=== PATIENT | male | born 1975 | race Caucasian/White ===

== ENCOUNTER 2021-12-12 06:20 | Inpatient (IN) | payer OTHER ==
[2021-12-12] MEDS ORDERED: MORPHINE SULFATE 4 MG/ML SYRINGE IV STA (06:41)
--- NOTE | 2021-12-12 06:45 | ED ---
General Adult HPI - General Chief complaint: Upper Respiratory Infection Stated complaint: RT should pain, coughing up blood Time Seen by Provider: 12/12/21 06:36 Source: patient, family Mode of arrival: ambulatory Limitations: no limitations - History of Present Illness Initial comments: 46-year-old male presents to the emergency room for a chief complaint of right- sided chest pain. Patient states he started to have some right-sided chest pain about 2 days ago. Denies it radiating down the arm or to the jaw or back. Patient states when he is lying still the pain is tolerable but when he breathes normally it worsens significantly. Yesterday he started to have some shortness of breath with this and today had a couple episodes of mild hemoptysis. He reports that 2 days ago he also had a fever of 102 that has since resolved. Patient does have a smoking history. No cardiac history.denies history of COPD or asthma. Patient has no other complaints at this time including abdominal pain, nausea or vomiting, headache, or visual changes. - Related Data Allergies Allergy/AdvReac Type Severity Reaction Status Date / Time sulfamethoxazole Allergy Swelling Verified 12/12/21 06:32 [From Bactrim] trimethoprim [From Bactrim] Allergy Swelling Verified 12/12/21 06:32 Review of Systems ROS Statement: Those systems with pertinent positive or pertinent negative responses have been documented in the HPI. ROS Other: All systems not noted in ROS Statement are negative. Past Medical History Past Medical History: No Reported History History of Any Multi-Drug Resistant Organisms: None Reported Past Surgical History: No Surgical Hx Reported Past Psychological History: No Psychological Hx Reported Smoking Status: Current every day smoker Past Alcohol Use History: Occasional Past Drug Use History: Marijuana General Exam Limitations: no limitations General appearance: alert, in no apparent distress Head exam: Present: atraumatic Eye exam: Present: normal appearance, PERRL, EOMI. Absent: scleral icterus, conjunctival injection ENT exam: Present: normal exam, mucous membranes moist Neck exam: Present: normal inspection, full ROM. Absent: tenderness Respiratory exam: Present: normal lung sounds bilaterally. Absent: respiratory distress, wheezes Cardiovascular Exam: Present: regular rate, normal rhythm, normal heart sounds GI/Abdominal exam: Present: soft, normal bowel sounds. Absent: distended, tenderness Course Vital Signs 12/12/21 12/12/21 12/12/21 06:29 08:46 10:21 Temperature 98 F Pulse Rate 74 75 77 Respiratory 22 20 22 Rate Blood Pressure 135/87 121/82 106/63 O2 Sat by Pulse 96 97 97 Oximetry EKG Findings - EKG Comments: EKG Findings:: sinus rhythm, vent rate 75, pr int 168, QTc 389, no st elevation or depression Medical Decision Making - Medical Decision Making Vitals are stable. EKG is nonischemic. CBC CMP unremarkable. Troponin negative. D-dimer was elevated. CT of the chest that shows a thrombus within of right mid lung pulmonary artery. Also nonspecific infiltrates. Correlate for pneumonia, underlying mass is not excluded. Patient was started on high- dose heparin and given a dose of IV antibiotics. Case discussed with Dr. Hart does accept patient. Requests continuing heparin and consulting pulmonology. Would like to hold off on further antibiotic treatment at this time. Of note patient does admit to some left posterior knee pain a couple days ago. - Lab Data Result diagrams: 12/12/21 06:55 12/12/21 06:55 Lab Results 12/12/21 12/12/21 12/12/21 Range/Units 06:55 06:55 06:55 WBC 8.4 (3.8-10.6) k/uL RBC 4.97 (4.30-5.90) m/uL Hgb 15.6 (13.0-17.5) gm/dL Hct 46.4 (39.0-53.0) % MCV 93.5 (80.0-100.0) fL MCH 31.4 (25.0-35.0) pg MCHC 33.6 (31.0-37.0) g/dL RDW 11.9 (11.5-15.5) % Plt Count 166 (150-450) k/uL MPV 7.2 Neutrophils % 67 % Lymphocytes % 19 % Monocytes % 8 % Eosinophils % 3 % Basophils % 1 % Neutrophils # 5.6 (1.3-7.7) k/uL Lymphocytes # 1.6 (1.0-4.8) k/uL Monocytes # 0.7 (0-1.0) k/uL Eosinophils # 0.3 (0-0.7) k/uL Basophils # 0.1 (0-0.2) k/uL PT 9.3 (9.0-12.0) sec INR 0.8 (<1.2) APTT 27.1 (22.0-30.0) sec D-Dimer 0.87 H (<0.60) mg/L FEU Sodium 136 L (137-145) mmol/L Potassium 3.9 (3.5-5.1) mmol/L Chloride 101 (98-107) mmol/L Carbon Dioxide 24 (22-30) mmol/L Anion Gap 11 mmol/L BUN 15 (9-20) mg/dL Creatinine 1.00 (0.66-1.25) mg/dL Est GFR (CKD-EPI)AfAm >90 (>60 ml/min/1.73 sqM) Est GFR (CKD-EPI)NonAf 89 (>60 ml/min/1.73 sqM) Glucose 99 (74-99) mg/dL Plasma Lactic Acid Brant (0.7-2.0) mmol/L Calcium 9.4 (8.4-10.2) mg/dL Magnesium 2.1 (1.6-2.3) mg/dL Total Bilirubin 0.8 (0.2-1.3) mg/dL AST 24 (17-59) U/L ALT 20 (4-49) U/L Alkaline Phosphatase 88 (38-126) U/L Troponin I (0.000-0.034) ng/mL NT-Pro-B Natriuret Pep pg/mL Total Protein 7.9 (6.3-8.2) g/dL Albumin 4.7 (3.5-5.0) g/dL Lipase 91 (23-300) U/L Coronavirus (PCR) (Not Detectd) 12/12/21 12/12/21 12/12/21 Range/Units 06:55 06:55 06:55 WBC (3.8-10.6) k/uL RBC (4.30-5.90) m/uL Hgb (13.0-17.5) gm/dL Hct (39.0-53.0) % MCV (80.0-100.0) fL MCH (25.0-35.0) pg MCHC (31.0-37.0) g/dL RDW (11.5-15.5) % Plt Count (150-450) k/uL MPV Neutrophils % % Lymphocytes % % Monocytes % % Eosinophils % % Basophils % % Neutrophils # (1.3-7.7) k/uL Lymphocytes # (1.0-4.8) k/uL Monocytes # (0-1.0) k/uL Eosinophils # (0-0.7) k/uL Basophils # (0-0.2) k/uL PT (9.0-12.0) sec INR (<1.2) APTT (22.0-30.0) sec D-Dimer (<0.60) mg/L FEU Sodium (137-145) mmol/L Potassium (3.5-5.1) mmol/L Chloride (98-107) mmol/L Carbon Dioxide (22-30) mmol/L Anion Gap mmol/L BUN (9-20) mg/dL Creatinine (0.66-1.25) mg/dL Est GFR (CKD-EPI)AfAm (>60 ml/min/1.73 sqM) Est GFR (CKD-EPI)NonAf (>60 ml/min/1.73 sqM) Glucose (74-99) mg/dL Plasma Lactic Acid Brant 1.0 (0.7-2.0) mmol/L Calcium (8.4-10.2) mg/dL Magnesium (1.6-2.3) mg/dL Total Bilirubin (0.2-1.3) mg/dL AST (17-59) U/L ALT (4-49) U/L Alkaline Phosphatase (38-126) U/L Troponin I <0.012 (0.000-0.034) ng/mL NT-Pro-B Natriuret Pep 13 pg/mL Total Protein (6.3-8.2) g/dL Albumin (3.5-5.0) g/dL Lipase (23-300) U/L Coronavirus (PCR) (Not Detectd) 12/12/21 Range/Units 06:55 WBC (3.8-10.6) k/uL RBC (4.30-5.90) m/uL Hgb (13.0-17.5) gm/dL Hct (39.0-53.0) % MCV (80.0-100.0) fL MCH (25.0-35.0) pg MCHC (31.0-37.0) g/dL RDW (11.5-15.5) % Plt Count (150-450) k/uL MPV Neutrophils % % Lymphocytes % % Monocytes % % Eosinophils % % Basophils % % Neutrophils # (1.3-7.7) k/uL Lymphocytes # (1.0-4.8) k/uL Monocytes # (0-1.0) k/uL Eosinophils # (0-0.7) k/uL Basophils # (0-0.2) k/uL PT (9.0-12.0) sec INR (<1.2) APTT (22.0-30.0) sec D-Dimer (<0.60) mg/L FEU Sodium (137-145) mmol/L Potassium (3.5-5.1) mmol/L Chloride (98-107) mmol/L Carbon Dioxide (22-30) mmol/L Anion Gap mmol/L BUN (9-20) mg/dL Creatinine (0.66-1.25) mg/dL Est GFR (CKD-EPI)AfAm (>60 ml/min/1.73 sqM) Est GFR (CKD-EPI)NonAf (>60 ml/min/1.73 sqM) Glucose (74-99) mg/dL Plasma Lactic Acid Brant (0.7-2.0) mmol/L Calcium (8.4-10.2) mg/dL Magnesium (1.6-2.3) mg/dL Total Bilirubin (0.2-1.3) mg/dL AST (17-59) U/L ALT (4-49) U/L Alkaline Phosphatase (38-126) U/L Troponin I (0.000-0.034) ng/mL NT-Pro-B Natriuret Pep pg/mL Total Protein (6.3-8.2) g/dL Albumin (3.5-5.0) g/dL Lipase (23-300) U/L Coronavirus (PCR) Not Detected (Not Detectd) Disposition Clinical Impression: Pulmonary embolism, Chest pain, Dyspnea Disposition: ADMITTED IP TO THIS [facility] Referrals: Aliyah Pa MD [Primary Care Provider] - 1-2 days Time of Disposition: 10:33
[2021-12-12 07:23] LABS: Basophils # (A) 0.1 k/uL (0-0.2); Basophils % (A) 1 %; Eosinophils # (A) 0.3 k/uL (0-0.7); Eosinophils % (A) 3 %; HCT 46.4 % (39.0-53.0); HGB 15.6 gm/dL (13.0-17.5); Lymphocytes # (A) 1.6 k/uL (1.0-4.8); Lymphocytes % (A) 19 %; MCH 31.4 pg (25.0-35.0); MCHC 33.6 g/dL (31.0-37.0); MCV 93.5 fL (80.0-100.0); Mean Platelet Volume 7.2; Monocytes # (A) 0.7 k/uL (0-1.0); Monocytes % (A) 8 %; Neutrophils # (A) 5.6 k/uL (1.3-7.7); Neutrophils % (A) 67 %; Platelet Count 166 k/uL (150-450); RBC 4.97 m/uL (4.30-5.90); RDW 11.9 % (11.5-15.5); WBC 8.4 k/uL (3.8-10.6)
--- NOTE | 2021-12-12 07:27 | XR ---
EXAMINATION TYPE: XR chest 2V DATE OF EXAM: 12/12/2021 COMPARISON: None INDICATION: Chest pain right-sided times today, short of breath, hemoptysis TECHNIQUE: Frontal and lateral views of the chest are obtained. FINDINGS: The heart size is normal. The pulmonary vasculature is normal. Some minimal infiltrate is at the left base this may be related to atelectasis. Some minimal infiltra te may be within the right midlung.. IMPRESSION: 1. Right mid and left lower lung nonspecific infiltrate. Correlate for atelectasis. Follow-up can be performed as clinically indicated.
[2021-12-12 07:40] LABS: INR 0.8 (<1.2); Partial Thromboplastin Time 27.1 sec (22.0-30.0); Prothrombin Time 9.3 sec (9.0-12.0)
[2021-12-12 07:50] LABS: ALT 20 U/L (4-49); AST 24 U/L (17-59); African American GFR (CKD) >90 (>60 ml/min/1.73 sqM); Albumin 4.7 g/dL (3.5-5.0); Alkaline Phosphatase 88 U/L (38-126); Anion Gap 11 mmol/L; Blood Urea Nitrogen 15 mg/dL (9-20); Calcium 9.4 mg/dL (8.4-10.2); Carbon Dioxide 24 mmol/L (22-30); Chloride 101 mmol/L (98-107); Glucose 99 mg/dL (74-99); Lipase 91 U/L (23-300); Non-African American GFR(CKD) 89 (>60 ml/min/1.73 sqM); Potassium 3.9 mmol/L (3.5-5.1); Sodium 136 mmol/L (137-145); Total Bilirubin 0.8 mg/dL (0.2-1.3); Total Protein 7.9 g/dL (6.3-8.2)
[2021-12-12 08:04] LABS: Magnesium 2.1 mg/dL (1.6-2.3)
[2021-12-12] MEDS ORDERED: HYDROmorphone 0.5 MG/0.5 ML SYRINGE IVP STA ×3 (08:47→23:14)
[2021-12-12] MEDS ORDERED: HEPARIN SODIUM 1,000 UN/ML (10ML VL) IV PRN (09:52)
[2021-12-12] MEDS ORDERED: HEPARIN SODIUM 1,000 UN/ML (10ML VL) IV STA (09:52)
--- NOTE | 2021-12-12 09:54 | CT ---
CT CHEST FOR PULMONARY EMBOLISM. EXAMINATION TYPE: CT chest angio for PE DATE OF EXAM: 12/12/2021 INDICATION: Chest pain and coughing up blood. CT DLP: 398.4 mGycm, Automated exposure control for dose reduction was used. CONTRAST: Patient injected with 67ml mL of Isovue 370. COMPARISON: None TECHNIQUE: CT of the chest is performed on a spiral scan at 2 mm thick sections. Study is performed with intravenous contrast timed for evaluation for pulmonary embolism. This will limit additional po rtions of the evaluation. 3-D MIP images reconstructed by the technologist are reviewed on the compu ter in the coronal and sagittal planes. FINDINGS: There is a single right mid pulmonary artery thrombus better visualized in the coronal plane. Example image series 402 image 72. No right heart strain is evident. There is a peripheral infiltrate to the right anterior lateral upper lung field. This is more focal i n the right midlung. This may be related to the pulmonary embolism. Correlate for pneumonia. Consider atypical pneumonia or mass. Follow-up is recommended No mediastinal or hilar adenopathy enlarged by CT criteria is evident. The ascending aorta diameter at the level of the main pulmonary artery is 3.4 cm. The main pulmonary artery diameter at the bifur cation is 2.8 cm. Minimal infiltrate is along the dependent right lung base may be some compressive atelectasis. Some m ild streaky opacities are within the lingula. Limited CT section through the upper abdomen are unremarkable. IMPRESSIONS: 1. Thrombus within a right mid lung pulmonary artery. Report was called to the ER by Dr. Rodriguez by yue perez at the time of interpretation. 2. Nonspecific infiltrates discussed above. This is most focal in the peripheral anterolateral right midlung. May be related to the pulmonary embolism. Correlate for pneumonia. Underlying mass is not ex cluded. Follow-up is recommended
[2021-12-12] MEDS ORDERED: AZITHROMYCIN 500 MG in SODIUM CHLORIDE 0.9% 250 ML IVPB STA (09:58)
[2021-12-12] MEDS ORDERED: cefTRIAXone IN SWFI 1,000 MG/10 ML SYRINGE IVP STA (09:58)
[2021-12-12] MEDS: HEPARIN SOD,PORK IN 0.45% NACL 25,000 UNIT in 0.45% NACL 1 250ML.BAG IV SCH ×2 (10:04→23:53)
[2021-12-12] MEDS ORDERED: NICOTINE 21MG/24HR PATCH TRANSDERM STA (10:40)
[2021-12-12 11:00] LABS: Appearance,Urine Clear (Clear); Bilirubin,Urine Negative (Negative); Blood,Urine Negative (Negative); Color,Urine Yellow; Glucose,Urine (UA) Negative (Negative); Ketones,Urine Negative (Negative); Leukocyte Esterase,Urine Negative (Negative); Nitrite,Urine Negative (Negative); Protein,Urine Trace (Negative); Urobilinogen,Urine <2.0 mg/dL (<2.0)
[2021-12-12 11:15] LABS: Specific Gravity,Urine >1.050 (1.001-1.035)
[2021-12-12] MEDS: ALPRAZolam 0.25 MG TAB PO PRN (11:42)
[2021-12-12] MEDS: MORPHINE SULFATE 4 MG/ML SYRINGE IV PRN ×3 (11:45→21:07)
[2021-12-12] MEDS ORDERED: IPRATROPIUM-ALBUTEROL 3 ML NEB INHALATION STA (12:10)
--- NOTE | 2021-12-12 13:43 | P.CNPUL ---
History of Present Illness Consult date: 12/12/21 Requesting physician: Rashad Milian Reason for consult: dyspnea, chest pain, pulmonary embolism Chief complaint: Pleuritic right-sided chest pain, hemoptysis History of present illness: This is a 46-year-old white male patient, chronic smoker, with no significant prior medical history, not on any home medications will came into the emergency department on 12/12/2021 complaining of right-sided pleuritic chest pain, cough, with production of blood-tinged sputum, shortness of breath. Denied any fever or chills. Patient also had lower extremity swelling which has been present for the past 2 years. His chest x-ray in emergency department showed a right mid and left lower lung nonspecific infiltrate possibly related to atelectasis, and some minimal infiltrate within the right midlung. CTA chest revealed a thrombus within the right midlung pulmonary artery, and nonspecific infiltrate with multifocal in the peripheral anterolateral right midlung. No mediastinal or hilar adenopathy. Lab work shows CBC within normal limits, d-dimer was 0.87, electrolytes and renal profile were unremarkable, troponins were less than 0.0122, proBNP was 13, LFTs are within normal limits, renal profile was normal, urinalysis showed no evidence of infection, COVID-19 PCR was negative. Patient was started on IV heparin Review of Systems All systems: negative Constitutional: Denies chills, Denies fever Eyes: denies blurred vision, denies pain Ears, nose, mouth and throat: Denies headache, Denies sore throat Cardiovascular: Denies chest pain, Denies shortness of breath Respiratory: Reports cough with sputum, Reports hemoptysis, Reports pain, Reports pain on inspiration, Reports pleurisy, Denies cough Gastrointestinal: Denies abdominal pain, Denies diarrhea, Denies nausea, Denies vomiting Musculoskeletal: Denies myalgias Integumentary: Denies pruritus, Denies rash Neurological: Denies numbness, Denies weakness Psychiatric: Denies anxiety, Denies depression Endocrine: Denies fatigue, Denies weight change Past Medical History Past Medical History: No Reported History History of Any Multi-Drug Resistant Organisms: None Reported Past Surgical History: No Surgical Hx Reported Smoking Status: Current every day smoker - Past Family History Father Family Medical History: No Reported History Mother Family Medical History: CVA/TIA Medications and Allergies Home Medications Medication Instructions Recorded Confirmed Type No Known Home Medications 12/12/21 12/12/21 History Allergies Allergy/AdvReac Type Severity Reaction Status Date / Time sulfamethoxazole Allergy Swelling Verified 12/12/21 11:28 [From Bactrim] trimethoprim [From Bactrim] Allergy Swelling Verified 12/12/21 11:28 Physical Exam Vitals: Vital Signs Temp Pulse Resp BP Pulse Ox 12/12/21 12:25 76 12/12/21 12:16 74 12/12/21 10:21 77 22 106/63 97 12/12/21 08:46 75 20 121/82 97 12/12/21 06:29 98 F 74 22 135/87 96 Intake and Output 12/11/21 12/12/21 12/12/21 22:59 06:59 14:59 Other: Weight 95.254 kg 95.254 kg GENERAL EXAM: Alert, very pleasant, 46-year-old white male, Or Melena Pulse Ox of 97% comfortable in no apparent distress. HEAD: Normocephalic/atraumatic. EYES: Normal reaction of pupils, equal size. Conjunctiva pink, sclera white. NOSE: Clear with pink turbinates. THROAT: No erythema or exudates. NECK: No masses, no JVD, no thyroid enlargement, no adenopathy. CHEST: No chest wall deformity. Symmetrical expansion. LUNGS: Diminished air entry with diffuse rhonchi and rales CVS: Regular rate and rhythm, normal S1 and S2, no gallops, no murmurs, no rubs ABDOMEN: Soft, nontender. No hepatosplenomegaly, normal bowel sounds, no guarding or rigidity. EXTREMITIES: No clubbing, no edema, no cyanosis, 2+ pulses and upper and lower extremities. MUSCULOSKELETAL: Muscle strength and tone normal. SPINE: No scoliosis or deformity SKIN: No rashes CENTRAL NERVOUS SYSTEM: Alert and oriented -3. No focal deficits, tone is normal in all 4 extremities. PSYCHIATRIC: Alert and oriented -3. Appropriate affect. Intact judgment and insight. Results - Laboratory Findings CBC and BMP: 12/12/21 06:55 12/12/21 06:55 PT/INR, D-dimer PT 9.3 sec (9.0-12.0) 12/12/21 06:55 INR 0.8 (<1.2) 12/12/21 06:55 D-Dimer 0.87 mg/L FEU (<0.60) H 12/12/21 06:55 Abnormal lab findings: Abnormal Labs 12/12/21 12/12/21 12/12/21 06:55 06:55 10:00 D-Dimer 0.87 H Sodium 136 L Ur Specific [place] >1.050 H Urine Protein Trace H - Diagnostic Findings Chest x-ray: report reviewed, image reviewed CT scan - chest: report reviewed, image reviewed Assessment and Plan Plan: Assessment: #1. Acute pleuritic right-sided chest pain related to acute pulmonary embolism #2. Hemoptysis related to pulmonary embolism and pulmonary infarction #3. Rule out possibility of underlying pneumonia, patient has been covered with antibiotics #4. Acute exacerbation of COPD and purulent tracheobronchitis #5. Lower extremity swelling, rule out possibility of DVT #6. Chronic smoker #7. Anxiety Plan: Continue heparin infusion We'll obtain echocardiogram to assess for RV strain and assess for pulmonary hypertension Consult vascular surgery for diagnosis of acute pulmonary embolism and for pos sible intervention We will start the patient on IV steroids and breathing treatments We'll obtain serum pro-calcitonin level Continue antibiotics We will obtain lower extremity Dopplers for possibility of DVT We'll continue to follow patient's clinical course I have personally seen and examined the patient, performed the documentation and the assessment and plan as written. Number of minutes spent on the visit: [15] Time with Patient: Greater than 30
[2021-12-12] MEDS: IPRATROPIUM-ALBUTEROL 3 ML NEB INHALATION SCH ×2 (15:09→19:51)
[2021-12-12] MEDS ORDERED: DEXTROSE 50% SYRINGE 50 ML IVP PRN ×2 (16:09)
[2021-12-12] MEDS: methylPREDNISolone SOD SUCCI 40 MG/ML 1 ML VIAL IV SCH ×2 (16:22→23:52)
[2021-12-12 16:29] LABS: Glucose,Whole Blood 99 mg/dL (70-110)
--- NOTE | 2021-12-12 16:38 | US ---
EXAMINATION TYPE: US venous doppler duplex LE DATE OF EXAM: 12/12/2021 3:51 PM COMPARISON: NONE CLINICAL HISTORY: leg swelling. SIDE PERFORMED: Right TECHNIQUE: The lower extremity deep venous system is examined utilizing real time linear array sonog boby with graded compression, doppler sonography and color-flow sonography. VESSELS IMAGED: Common Femoral Vein Deep Femoral Vein Greater Saphenous Vein * Femoral Vein Popliteal Vein Small Saphenous Vein * Proximal Calf Veins (* superficial vessels) Right Leg: Negative for DVT Left Leg: Negative for DVT Positive for Superficial thrombus in Small saphenous vein IMPRESSION: No evidence of deep vein thrombosis in the right leg. There is some limited superficial vein thrombosis in the left leg. No deep vein thrombosis in the lef t leg.
[2021-12-12] MEDS: INSULIN ASPART (NovoLOG) 100 UNIT/ML VIAL SQ SCH ×2 (16:48→20:47)
[2021-12-12 20:09] LABS: Glucose,Whole Blood 133 mg/dL (70-110)
--- NOTE | 2021-12-12 22:09 | P.HPIM ---
History of Present Illness this is a pleasant 46 years old female with no significant past medical history. Patient presents because of right-sided chest pain and coughing up blood Patient states that for the last 3 days has been having right anterior chest pain about 10/10 on admission increased by movement and deep breathing and coughing, felt like stabbing in sensation. Patient also has dyspnea for at least 3 days. No change in urine or bowel habits but he has dysuria. Question of fever at home. He smokes about 1 pack per day and these were counseled to quit but he is not ready he agrees for nicotine patch. No alcohol and he smokes marijuana. he's afebrile but tachypneic around 20 to 24th breath permanent. Hemodynamically he is a stable. Labs reviewed and show an unremarkable CBC, BMP, liver enzymes, troponin, urine analysis. D-dimer is mildly elevated at 0.85. chest x-ray: right mid and left lower lung nonspecific infiltrate. Correlate for atelectasis. Follow-up Urine analysis is negative for infection. EKG:normal sinus rhythm at [address] T changes significantly CTA of the chest: Thrombosed within the right midlung pulmonary artery. Nonspecific infiltrates in the right lung could be related to pulmonary embolism.underlying mass not entirely excluded. Patient was started on heparin drip. Review of Systems CONSTITUTIONAL: No fever, no malaise, no fatigue. HEENT: No recent visual problems or hearing problems. Denied any sore throat. CARDIOVASCULAR: No orthopnea, PND, no palpitations, no syncope. PULMONARY: No chest wall tenderness, no hemoptysis. GASTROINTESTINAL: No diarrhea, no nausea, no vomiting, no abdominal pain. Normoactive bowel sounds. NEUROLOGICAL: No headaches, no weakness, no numbness. HEMATOLOGICAL: Denies any bleeding or petechiae. GENITOURINARY: Denies any burning micturition, frequency, or urgency. MUSCULOSKELETAL/RHEUMATOLOGICAL: Denies any joint pain, swelling, or any muscle pain. ENDOCRINE: Denies any polyuria or polydipsia. Past Medical History Past Medical History: No Reported History History of Any Multi-Drug Resistant Organisms: None Reported Past Surgical History: No Surgical Hx Reported Smoking Status: Current every day smoker - Past Family History Father Family Medical History: No Reported History Mother Family Medical History: CVA/TIA Medications and Allergies Home Medications Medication Instructions Recorded Confirmed Type No Known Home Medications 12/12/21 12/12/21 History Allergies Allergy/AdvReac Type Severity Reaction Status Date / Time sulfamethoxazole Allergy Swelling Verified 12/12/21 11:28 [From Bactrim] trimethoprim [From Bactrim] Allergy Swelling Verified 12/12/21 11:28 Physical Exam Vitals: Vital Signs Temp Pulse Resp BP Pulse Ox 12/12/21 10:21 77 22 106/63 97 12/12/21 08:46 75 20 121/82 97 12/12/21 06:29 98 F 74 22 135/87 96 Intake and Output 12/11/21 12/12/21 12/12/21 22:59 06:59 14:59 Other: Weight 95.254 kg 95.254 kg GENERAL: The patient is alert and oriented x3, not in any acute distress. Well developed, well nourished. HEENT: Pupils are round and equally reacting to light. EOMI. No scleral icterus. No conjunctival pallor. Normocephalic, atraumatic. No pharyngeal erythema. No t hyromegaly. CARDIOVASCULAR: S1 and S2 present. No murmurs, rubs, or gallops. PULMONARY: Chest is clear to auscultation, no wheezing or crackles. ABDOMEN: Soft, nontender, nondistended, normoactive bowel sounds. No palpable organomegaly. MUSCULOSKELETAL: No joint swelling or deformity. EXTREMITIES: No cyanosis, clubbing, or pedal edema. NEUROLOGICAL: Gross neurological examination did not reveal any focal deficits. SKIN: No rashes. No petechiae Results CBC & Chem 7: 12/12/21 06:55 12/12/21 06:55 Labs: Abnormal Lab Results - Last 24 Hours (Table) 12/12/21 12/12/21 12/12/21 Range/Units 06:55 06:55 10:00 D-Dimer 0.87 H (<0.60) mg/L FEU Sodium 136 L (137-145) mmol/L Ur Specific [place] >1.050 H (1.001-1.035) Urine Protein Trace H (Negative) Thrombosis Risk Factor Assmnt - Choose All That Apply Any of the Below Risk Factors Present?: Yes Each Factor Represents 1 point: Age 41-60 years, Obesity (BMI >25) Other Risk Factors: No Other congenital or acquired thrombophilia - If yes, enter type in comment: No Thrombosis Risk Factor Assessment Total Risk Factor Score: 2 Thrombosis Risk Factor Assessment Level: Low Risk Assessment and Plan Assessment: acute pulmonary embolism right side pulmonary infiltrates, most likely related to pulmonary infarctionnicotine dependencethe suspicion of pneumonia is low Nicotine dependence Obesity with BMI of 31 Plan: this is a pleasant 46 years old male who presents with acute pulmonary embolism. Continue with heparin drip Check echocardiogram Pulmonary team consult check pro-calcitonin Labs and medication were reviewed.. Continue same treatment. Continue with symptomatic treatment. Resume home medication. Monitor lytes and vitals. DVT and GI prophylaxis. Further recommendations depends on the clinical course of the patient DVT prophylaxis: heparin GI Prophylaxis: Pepcid PT/OT: Pending Prognosis is guarded
[2021-12-13] MEDS: MORPHINE SULFATE 4 MG/ML SYRINGE IV PRN (04:52)
[2021-12-13 06:06] LABS: Glucose,Whole Blood 141 mg/dL (70-110)
[2021-12-13] MEDS: INSULIN ASPART (NovoLOG) 100 UNIT/ML VIAL SQ SCH ×4 (06:13→20:19)
[2021-12-13] MEDS: IPRATROPIUM-ALBUTEROL 3 ML NEB INHALATION SCH ×4 (07:16→19:35)
[2021-12-13 08:00] LABS: Basophils % (A) 0 %; Eosinophils % (A) 0 %; HCT 47.7 % (39.0-53.0); HGB 16.2 gm/dL (13.0-17.5); Lymphocytes # (A) 1.2 k/uL (1.0-4.8); Lymphocytes % (A) 16 %; MCH 32.7 pg (25.0-35.0); MCV 96.2 fL (80.0-100.0); Mean Platelet Volume 7.3; Monocytes # (A) 0.1 k/uL (0-1.0); Monocytes % (A) 2 %; Neutrophils # (A) 6.2 k/uL (1.3-7.7); Neutrophils % (A) 82 %; Platelet Count 162 k/uL (150-450); RBC 4.96 m/uL (4.30-5.90); RDW 12.2 % (11.5-15.5); WBC 7.6 k/uL (3.8-10.6)
[2021-12-13] MEDS: AZITHROMYCIN 500 MG TAB PO SCH (08:31)
[2021-12-13] MEDS: methylPREDNISolone SOD SUCCI 40 MG/ML 1 ML VIAL IV SCH ×2 (08:31→16:16)
[2021-12-13] MEDS: ALPRAZolam 0.25 MG TAB PO PRN ×2 (08:32→17:07)
[2021-12-13 08:36] LABS: African American GFR (CKD) >90 (>60 ml/min/1.73 sqM); Anion Gap 10 mmol/L; Blood Urea Nitrogen 13 mg/dL (9-20); Calcium 9.4 mg/dL (8.4-10.2); Carbon Dioxide 19 mmol/L (22-30); Chloride 107 mmol/L (98-107); Glucose 152 mg/dL (74-99); Magnesium 2.2 mg/dL (1.6-2.3); Non-African American GFR(CKD) >90 (>60 ml/min/1.73 sqM); Potassium 4.8 mmol/L (3.5-5.1); Sodium 136 mmol/L (137-145)
[2021-12-13] MEDS: APIXABAN 5 MG TAB PO SCH ×2 (11:15→20:20)
[2021-12-13] MEDS: HYDROmorphone 0.5 MG/0.5 ML SYRINGE IVP PRN ×3 (11:15→20:20)
[2021-12-13 11:45] LABS: Glucose,Whole Blood 141 mg/dL (70-110)
--- NOTE | 2021-12-13 12:25 | P.GSCN ---
History of Present Illness Consult date: 12/13/21 History of present illness: Osmar is a 46-year-old male with history of tobacco abuse and no other medical history or medications. He does not see a doctor regularly. He began having right-sided chest pain with cough and shortness of breath. He states this in itiated with some left lower extremity pain. He denies any long car rides. He denies any trips or trauma. He does have a relatively strong family history of blood clots denoted by his sister at the bedside although she is not sure what the mutation is. On workup and evaluation in the ER he was found to have right pulmonary atelectasis as well as a pulmonary embolism in the right midlung. Labs were essentially normal. The computed tomography scan showed no evidence of right heart strain. He had a venous duplex that showed a superficial venous thrombus in the small saphenous vein on the left. No deep venous thrombosis. He states he is feeling better and wants to go home. He occasionally still has pain with deep inspiration. As of this morning he has been transitioned to oral antic oagulation Past Medical History Past Medical History: No Reported History History of Any Multi-Drug Resistant Organisms: None Reported Past Surgical History: No Surgical Hx Reported Smoking Status: Current every day smoker - Past Family History Father Family Medical History: No Reported History Mother Family Medical History: CVA/TIA Medications and Allergies Home Medications Medication Instructions Recorded Confirmed Type No Known Home Medications 12/12/21 12/12/21 History Allergies Allergy/AdvReac Type Severity Reaction Status Date / Time sulfamethoxazole Allergy Swelling Verified 12/12/21 11:28 [From Bactrim] trimethoprim [From Bactrim] Allergy Swelling Verified 12/12/21 11:28 Surgical - Exam Vital Signs Temp Pulse Resp BP Pulse Ox 98 F 74 22 135/87 96 12/12/21 06:29 12/12/21 06:29 12/12/21 06:29 12/12/21 06:29 12/12/21 06:29 Gen. pleasant cooperative male in no acute distress. HEENT is no cephalic, atraumatic, excellent motion intact. Oral and stated age. Heart is regular in rate and rhythm. Lungs are clear bilaterally. Diminished. Abdomen is soft. Extremities with multiple tattoos. No clubbing or cyanosis. Normal mood and affect. Results Computed tomography scan and ultrasound are reviewed. - Labs 12/13/21 07:34 12/13/21 07:34 Abnormal Lab Results - Last 24 Hours (Table) 12/12/21 12/12/21 12/12/21 Range/Units 06:55 15:59 20:07 APTT 60.8 H (22.0-30.0) sec Sodium (137-145) mmol/L Carbon Dioxide (22-30) mmol/L Glucose (74-99) mg/dL POC Glucose (mg/dL) 133 H (70-110) mg/dL Procalcitonin 0.11 H (0.02-0.09) ng/mL 12/13/21 12/13/21 12/13/21 Range/Units 06:05 07:34 07:34 APTT 47.8 H (22.0-30.0) sec Sodium 136 L (137-145) mmol/L Carbon Dioxide 19 L (22-30) mmol/L Glucose 152 H (74-99) mg/dL POC Glucose (mg/dL) 141 H (70-110) mg/dL Procalcitonin (0.02-0.09) ng/mL 12/13/21 Range/Units 11:43 APTT (22.0-30.0) sec Sodium (137-145) mmol/L Carbon Dioxide (22-30) mmol/L Glucose (74-99) mg/dL POC Glucose (mg/dL) 141 H (70-110) mg/dL Procalcitonin (0.02-0.09) ng/mL Microbiology - Last 24 Hours (Table) 12/12/21 06:40 Blood Culture - Preliminary Blood No Growth after 24 hours 12/12/21 20:10 Gram Stain - Preliminary Sputum Sputum Culture - Preliminary Diabetes panel 12/12/21 12/13/21 Range/Units 06:55 07:34 Sodium 136 L (137-145) mmol/L Potassium 4.8 (3.5-5.1) mmol/L Chloride 107 (98-107) mmol/L Carbon Dioxide 19 L (22-30) mmol/L BUN 13 (9-20) mg/dL Creatinine 0.72 (0.66-1.25) mg/dL Glucose 152 H (74-99) mg/dL Hemoglobin A1c 5.6 (0.0-6.0) % Calcium 9.4 (8.4-10.2) mg/dL Calcium panel 12/13/21 Range/Units 07:34 Calcium 9.4 (8.4-10.2) mg/dL Pituitary panel 12/13/21 Range/Units 07:34 Sodium 136 L (137-145) mmol/L Potassium 4.8 (3.5-5.1) mmol/L Chloride 107 (98-107) mmol/L Carbon Dioxide 19 L (22-30) mmol/L BUN 13 (9-20) mg/dL Creatinine 0.72 (0.66-1.25) mg/dL Glucose 152 H (74-99) mg/dL Calcium 9.4 (8.4-10.2) mg/dL Adrenal panel 12/13/21 Range/Units 07:34 Sodium 136 L (137-145) mmol/L Potassium 4.8 (3.5-5.1) mmol/L Chloride 107 (98-107) mmol/L Carbon Dioxide 19 L (22-30) mmol/L BUN 13 (9-20) mg/dL Creatinine 0.72 (0.66-1.25) mg/dL Glucose 152 H (74-99) mg/dL Calcium 9.4 (8.4-10.2) mg/dL Assessment and Plan Assessment: Right solitary pulmonary embolism Left superficial venous thrombus phlebitis Reported family history of blood clots Plan: After review there is no strong evidence of right heart strain on any imaging so far collected. The results of echocardiogram have not yet been released however doubt there will shows any significant heart strain that would require intervention. Patient remains off oxygen and is tolerating this very well. From my standpoint he'll likely be released. He has been transitioned to oral anticoagulation, he would likely benefit from an outpatient follow-up with hematology given his family history to evaluate for causation of his thromboembolic event. This is all discussed with himself and the family at the bedside. They seemingly understand.
--- NOTE | 2021-12-13 12:40 | P.PN ---
Subjective Progress Note Date: 12/13/21 Principal diagnosis: Pleuritic chest pain, cough, hemoptysis This is a 46-year-old white male patient, chronic smoker, with no significant prior medical history, not on any home medications will came into the emergency department on 12/12/2021 complaining of right-sided pleuritic chest pain, cough, with production of blood-tinged sputum, shortness of breath. Denied any fever or chills. Patient also had lower extremity swelling which has been present for the past 2 years. His chest x-ray in emergency department showed a right mid and left lower lung nonspecific infiltrate possibly related to atelectasis, and some minimal infiltrate within the right midlung. CTA chest revealed a thrombus within the right midlung pulmonary artery, and nonspecific infiltrate with multi focal in the peripheral anterolateral right midlung. No mediastinal or hilar adenopathy. Lab work shows CBC within normal limits, d-dimer was 0.87, electrolytes and renal profile were unremarkable, troponins were less than 0.0122, proBNP was 13, LFTs are within normal limits, renal profile was normal, urinalysis showed no evidence of infection, COVID-19 PCR was negative. Patient was started on IV heparin On the 12/13/2021 patient seen in follow-up on selective care unit, he is resting comfortably in bed, room air pulse ox is 92%, still having pleuritic chest discomfort but it is improved, his cough is improved. Echocardiogram has been done the report is pending, patient remains on heparin infusion, he remains on IV Solu-Medrol, antibiotics, and nebulized treatments. No acute events overnight, vital signs have been stable, CBC is within normal limits on today's labs, his CO2 was 19, the rest of electrolytes and renal profile were unremarkable. Venous Doppler of bilateral lower extremities showed no evidence of DVT, and there was a superficial thrombus and the small saphenous vein in the left leg. Surgical consultation has been requested Objective - Vital Signs Vital signs: Vital Signs Temp 98.2 F 12/13/21 11:44 Pulse 77 12/13/21 11:46 Resp 24 12/13/21 11:44 BP 155/52 12/13/21 11:44 Pulse Ox 93 L 12/13/21 11:44 FiO2 Intake & Output 12/12/21 12/13/21 12/13/21 18:59 06:59 18:59 Intake Total 236.901 Balance 236.901 Weight 95.254 kg Intake: Intake, IV Titration 236.901 Amount Heparin Sod,Pork in 0.45% 236.901 NaCl 25,000 unit In 0.45 % NaCl 1 250ml.bag @ 18 UNITS/KG/HR 17.146 mls/hr IV .[id number] [facility] Rx#: [id number] Other: Voiding Method Toilet Toilet # Voids 2 - Exam GENERAL EXAM: Alert, very pleasant, 46-year-old white male, room air Pulse Ox of 92% comfortable in no apparent distress. HEAD: Normocephalic/atraumatic. EYES: Normal reaction of pupils, equal size. Conjunctiva pink, sclera white. NOSE: Clear with pink turbinates. THROAT: No erythema or exudates. NECK: No masses, no JVD, no thyroid enlargement, no adenopathy. CHEST: No chest wall deformity. Symmetrical expansion. LUNGS: Diminished air entry with diffuse rhonchi and rales CVS: Regular rate and rhythm, normal S1 and S2, no gallops, no murmurs, no rubs ABDOMEN: Soft, nontender. No hepatosplenomegaly, normal bowel sounds, no guarding or rigidity. EXTREMITIES: No clubbing, no edema, no cyanosis, 2+ pulses and upper and lower extremities. MUSCULOSKELETAL: Muscle strength and tone normal. SPINE: No scoliosis or deformity SKIN: No rashes CENTRAL NERVOUS SYSTEM: Alert and oriented -3. No focal deficits, tone is normal in all 4 extremities. PSYCHIATRIC: Alert and oriented -3. Appropriate affect. Intact judgment and insight. - Labs CBC & Chem 7: 12/13/21 07:34 12/13/21 07:34 Labs: Abnormal Lab Results - Last 24 Hours (Table) 12/12/21 12/12/21 12/12/21 Range/Units 06:55 15:59 20:07 APTT 60.8 H (22.0-30.0) sec Sodium (137-145) mmol/L Carbon Dioxide (22-30) mmol/L Glucose (74-99) mg/dL POC Glucose (mg/dL) 133 H (70-110) mg/dL Procalcitonin 0.11 H (0.02-0.09) ng/mL 12/13/21 12/13/21 12/13/21 Range/Units 06:05 07:34 07:34 APTT 47.8 H (22.0-30.0) sec Sodium 136 L (137-145) mmol/L Carbon Dioxide 19 L (22-30) mmol/L Glucose 152 H (74-99) mg/dL POC Glucose (mg/dL) 141 H (70-110) mg/dL Procalcitonin (0.02-0.09) ng/mL 12/13/21 Range/Units 11:43 APTT (22.0-30.0) sec Sodium (137-145) mmol/L Carbon Dioxide (22-30) mmol/L Glucose (74-99) mg/dL POC Glucose (mg/dL) 141 H (70-110) mg/dL Procalcitonin (0.02-0.09) ng/mL Microbiology - Last 24 Hours (Table) 12/12/21 06:40 Blood Culture - Preliminary Blood No Growth after 24 hours 12/12/21 20:10 Gram Stain - Preliminary Sputum Sputum Culture - Preliminary Assessment and Plan Plan: Assessment: #1. Acute pleuritic right-sided chest pain related to acute pulmonary embolism #2. Hemoptysis related to pulmonary embolism and pulmonary infarction #3. Rule out possibility of underlying pneumonia, patient has been covered with antibiotics #4. Acute exacerbation of COPD and purulent tracheobronchitis #5. Lower extremity swelling, rule out possibility of DVT #6. Chronic smoker #7. Anxiety Plan: Echocardiogram has been completed the results are pending Vascular surgery consultation has been noted and appreciated Patient is breathing easier today Vital signs stable We'll transition him to Eliquis, We'll stop the heparin infusion Continue steroids, nebulized bronchodilators and antibiotics From pulmonary perspective if echocardiogram shows no significant abnormality he can be considered for discharge home later on today or possibly tomorrow She will need outpatient follow-up with Dr. Keith in the office in 7-10 days I have personally seen and examined the patient, performed the documentation and the assessment and plan as written. Number of minutes spent on the visit: [15] Time with Patient: Less than 30
[2021-12-13] MEDS: NICOTINE 21MG/24HR PATCH TRANSDERM SCH ×2 (16:16→17:07)
[2021-12-13 16:46] LABS: Glucose,Whole Blood 138 mg/dL (70-110)
--- NOTE | 2021-12-13 18:16 | P.PN ---
Subjective this is a pleasant 46 years old female with no significant past medical history. Patient presents because of right-sided chest pain and coughing up blood Patient states that for the last 3 days has been having right anterior chest pain about 10/10 on admission increased by movement and deep breathing and coughing, felt like stabbing in sensation. Patient also has dyspnea for at least 3 days. No change in urine or bowel habits but he has dysuria. Question of fever at home. He smokes about 1 pack per day and these were counseled to quit but he is not ready he agrees for nicotine patch. No alcohol and he smokes marijuana. he's afebrile but tachypneic around 20 to 24th breath permanent. Hemodynamically he is a stable. Labs reviewed and show an unremarkable CBC, BMP, liver enzymes, troponin, urine analysis. D-dimer is mildly elevated at 0.85. chest x-ray: right mid and left lower lung nonspecific infiltrate. Correlate for atelectasis. Follow-up Urine analysis is negative for infection. EKG:normal sinus rhythm at [address] T changes significantly CTA of the chest: Thrombosed within the right midlung pulmonary artery. Nonspec ific infiltrates in the right lung could be related to pulmonary embolism.underlying mass not entirely excluded. Patient was started on heparin drip. 12/13/2021 Patient breathing improvement however still complaining of from chest pain and asking his pain medication to switch to Dilaudid this morning Patient is hemodynamically stable. Hemoglobin A1c 5.6%. For discussed on an normal at 0.09 patient with low suspicion of pneumonia however pulmonary team recommended to continue with antibiotic. He is on a liquid Ceftin dose 10 mg twice daily. Also he is on Solu-Medrol. Echocardiogram result is pending. Objective - Vital Signs Vital signs: Vital Signs Temp 98.2 F 12/13/21 11:44 Pulse 77 12/13/21 11:46 Resp 24 12/13/21 11:44 BP 155/52 12/13/21 11:44 Pulse Ox 93 L 12/13/21 11:44 FiO2 Intake & Output 12/12/21 12/13/21 12/13/21 18:59 06:59 18:59 Intake Total 236.901 Balance 236.901 Weight 95.254 kg Intake: Intake, IV Titration 236.901 Amount Heparin Sod,Pork in 0.45% 236.901 NaCl 25,000 unit In 0.45 % NaCl 1 250ml.bag @ 18 UNITS/KG/HR 17.146 mls/hr IV .[id number] [facility] Rx#: [id number] Other: Voiding Method Toilet Toilet # Voids 2 - Exam GENERAL: The patient is alert and oriented x3, not in any acute distress. Well developed, well nourished. HEENT: Pupils are round and equally reacting to light. EOMI. No scleral icterus. No conjunctival pallor. Normocephalic, atraumatic. No pharyngeal erythema. No thyromegaly. CARDIOVASCULAR: S1 and S2 present. No murmurs, rubs, or gallops. PULMONARY: Chest is clear to auscultation, no wheezing or crackles. ABDOMEN: Soft, nontender, nondistended, normoactive bowel sounds. No palpable organomegaly. MUSCULOSKELETAL: No joint swelling or deformity. EXTREMITIES: No cyanosis, clubbing, or pedal edema. NEUROLOGICAL: Gross neurological examination did not reveal any focal deficits. SKIN: No rashes. no petechiae. - Labs CBC & Chem 7: 12/13/21 07:34 12/13/21 07:34 Labs: Abnormal Lab Results - Last 24 Hours (Table) 12/12/21 12/12/21 12/12/21 Range/Units 06:55 15:59 20:07 APTT 60.8 H (22.0-30.0) sec Sodium (137-145) mmol/L Carbon Dioxide (22-30) mmol/L Glucose (74-99) mg/dL POC Glucose (mg/dL) 133 H (70-110) mg/dL Procalcitonin 0.11 H (0.02-0.09) ng/mL 12/13/21 12/13/21 12/13/21 Range/Units 06:05 07:34 07:34 APTT 47.8 H (22.0-30.0) sec Sodium 136 L (137-145) mmol/L Carbon Dioxide 19 L (22-30) mmol/L Glucose 152 H (74-99) mg/dL POC Glucose (mg/dL) 141 H (70-110) mg/dL Procalcitonin (0.02-0.09) ng/mL 12/13/21 Range/Units 11:43 APTT (22.0-30.0) sec Sodium (137-145) mmol/L Carbon Dioxide (22-30) mmol/L Glucose (74-99) mg/dL POC Glucose (mg/dL) 141 H (70-110) mg/dL Procalcitonin (0.02-0.09) ng/mL Microbiology - Last 24 Hours (Table) 12/12/21 06:40 Blood Culture - Preliminary Blood No Growth after 24 hours 12/12/21 20:10 Gram Stain - Preliminary Sputum Sputum Culture - Preliminary Assessment and Plan Assessment: acute pulmonary embolism right side pulmonary infiltrates, most likely related to pulmonary infarctionnicotine dependencethe suspicion of pneumonia is low Nicotine dependence Obesity with BMI of 31 Plan: this is a pleasant 46 years old male who presents with acute pulmonary embolism. Change anticoagulation into Eliquis 10 mg Follow the result of echocardiogram Pulmonary team consult Pulmonary team recommended to continue with antibiotics and steroids one vascular surgery consult noted Labs and medication were reviewed.. Continue same treatment. Continue with symptomatic treatment. Resume home medication. Monitor lytes and vitals. DVT and GI prophylaxis. Further recommendations depends on the clinical course of the patient DVT prophylaxis: Eliquis GI Prophylaxis: Pepcid
[2021-12-13 19:59] LABS: Glucose,Whole Blood 150 mg/dL (70-110)
[2021-12-14] MEDS: HYDROmorphone 0.5 MG/0.5 ML SYRINGE IVP PRN ×4 (00:08→12:42)
[2021-12-14] MEDS: methylPREDNISolone SOD SUCCI 40 MG/ML 1 ML VIAL IV SCH ×2 (00:09→08:42)
[2021-12-14 06:19] LABS: Glucose,Whole Blood 142 mg/dL (70-110)
[2021-12-14] MEDS: INSULIN ASPART (NovoLOG) 100 UNIT/ML VIAL SQ SCH ×2 (06:22→12:42)
[2021-12-14] MEDS: APIXABAN 5 MG TAB PO SCH (08:42)
[2021-12-14] MEDS: AZITHROMYCIN 500 MG TAB PO SCH (08:43)
[2021-12-14] MEDS: NICOTINE 21MG/24HR PATCH TRANSDERM SCH (08:43)
[2021-12-14] MEDS: IPRATROPIUM-ALBUTEROL 3 ML NEB INHALATION SCH ×2 (08:53→12:19)
--- NOTE | 2021-12-14 09:47 | P.PN ---
Subjective Progress Note Date: 12/14/21 Principal diagnosis: Pulmonary embolism Patient seen and examined is a follow-up for pulmonary embolism. He denies any acute changes through the night. He still has some discomfort in the right side of his chest. Echocardiogram is still pending. Patient 95% on room air, afeb rile, blood pressure 131/72 heart rate 72 respiratory rate 18. Patient has been transitioned to [facility]. Objective - Vital Signs Vital signs: Vital Signs Temp 98 F 12/14/21 08:40 Pulse 76 12/14/21 09:10 Resp 18 12/14/21 08:40 BP 131/72 12/14/21 08:40 Pulse Ox 95 12/14/21 08:40 FiO2 Intake & Output 12/13/21 12/14/21 12/14/21 18:59 06:59 18:59 Intake Total 216.897 20 Balance 216.897 20 Intake: IV 20 Invasive Line 1 20 Intake, IV Titration 216.897 Amount Heparin Sod,Pork in 0.45% 216.897 NaCl 25,000 unit In 0.45 % NaCl 1 250ml.bag @ 18 UNITS/KG/HR 17.146 mls/hr IV .[id number] [facility] Rx#: [id number] Other: Voiding Method Toilet Toilet # Voids 1 1 - Exam General appearance: The patient is alert, oriented, appears in no acute distress. HET: Head is normocephalic and atraumatic. Pupils are equal and reactive. Neck: Supple without lymphadenopathy. Trachea midline. Heart: S1 S2. Regular rate and rhythm. Lungs: Clear to auscultation bilaterally. Abdomen: Soft, nontender, nondistended. Extremities: Normal skin color and turgor. No cyanosis, rash, ulceration, clubbing, or edema. Radial and pedal pulses are 2/4 bilaterally. Neurological: No focal deficits. Strength and sensation are grossly intact. - Labs CBC & Chem 7: 12/13/21 07:34 12/13/21 07:34 Labs: Abnormal Lab Results - Last 24 Hours (Table) 12/13/21 12/13/21 12/13/21 Range/Units 11:43 16:45 19:58 POC Glucose (mg/dL) 141 H 138 H 150 H (70-110) mg/dL 08/01/22 Range/Units 06:17 POC Glucose (mg/dL) 142 H (70-110) mg/dL Microbiology - Last 24 Hours (Table) 12/12/21 06:40 Blood Culture - Preliminary Blood No Growth after 48 hours 12/12/21 20:10 Gram Stain - Preliminary Sputum Sputum Culture - Preliminary Assessment and Plan Assessment: 1. Right solitary pulmonary embolism 2. Left superficial venous thrombus phlebitis 3. Reported family history of blood clots Plan: 1. Continue Eliquis 2. Recommend outpatient follow-up with hematology for family history of blood clots 3. Patient is cleared for discharge from vascular surgery Thank you for this consultation, we will sign off at this time. The impression and plan of care has been dictated as directed. Dr. Sanchez I performed a history and examination of this patient, discussed the same with the dictator. I agree with the dictator's note ,documented as a scribe. Any additional findings or plans will be noted.
--- NOTE | 2021-12-14 10:40 | CA ---
Transthoracic Echo Report Name: Osmar Tong Age: 46 Gender: M : 1975 Exam Date: 12/12/2021 14:08 Exam Location: [place] [facility] Ht (in): 69 Wt (lb): 210 Ordering Physician: Andressa Whiteside Attending/Referring Phys: [id number], Stevo Hook Tender Loyda Hoyt RDCS Procedure CPT: Indications: Acute PE Cardiac Hx: Technical Quality: Fair Contrast 1: Total Dose (mL): Contrast 2: Total Dose (mL): MEASUREMENTS (Male / Female) Normal Values 2D ECHO LV Diastolic Diameter PLAX 4.9 cm 4.2 - 5.9 / 3.9 - 5.3 cm LV Systolic Diameter PLAX 3.2 cm IVS Diastolic Thickness 1.2 cm 0.6 - 1.0 / 0.6 - 0.9 cm LVPW Diastolic Thickness 1.2 cm 0.6 - 1.0 / 0.6 - 0.9 cm LV Relative Wall Thickness 0.5 RV Internal Dim ED PLAX 3.1 cm LA Systolic Diameter LX 3.5 cm 3.0 - 4.0 / 2.7 - 3.8 cm LA Volume 38.8 cm??? 18 - 58 / 22 - 52 cm??? M-MODE Aortic Root Diameter MM 2.9 cm MV E Point Septal Separation 0.8 cm AV Cusp Separation MM 2.3 cm DOPPLER AV Peak Velocity 168.5 cm/s AV Peak Gradient 11.4 mmHg MV Area PHT 3.2 cm??? Mitral E Point Velocity 85.9 cm/s Mitral A Point Velocity 73.6 cm/s Mitral E to A Ratio 1.2 MV Deceleration Time 234.6 ms MV E' Velocity 7.6 cm/s Mitral E to MV E' Ratio 11.3 FINDINGS Left Ventricle Left ventricular ejection fraction is estimated at 55-60 %. Left ventricular cavity size normal. Borderline left ventricular hypertrophy. Right Ventricle Normal right ventricular size and function. Unable to estimate the right ventricular systolic pressure. Right Atrium Normal right atrial size. Left Atrium Normal left atrial size. No evidence for an atrial septal defect. Mitral Valve Structurally normal mitral valve. No mitral stenosis, regurgitation or prolapse. Aortic Valve Trileaflet aortic valve. No aortic valve stenosis or regurgitation. Tricuspid Valve Structurally normal tricuspid valve. Pulmonic Valve Structurally normal pulmonic valve. Pericardium Normal pericardium. No pericardial effusion. Aorta Normal size aortic root and proximal ascending aorta. CONCLUSIONS Normal LV size and systolic function with mild left atrial hypertrophy Limited views of the right ventricle, mostly parasternal In these use RV size and function appears to be normal Previewed by: Dr. Tito Hernandez MD (Electronically Signed) Final Date: 14 December 2021 10:38
[2021-12-14 11:47] LABS: Glucose,Whole Blood 130 mg/dL (70-110)
--- NOTE | 2021-12-14 12:28 | P.PN ---
Subjective Progress Note Date: 12/14/21 Principal diagnosis: Pleuritic chest pain, cough, hemoptysis This is a 46-year-old white male patient, chronic smoker, with no significant prior medical history, not on any home medications will came into the emergency department on 12/12/2021 complaining of right-sided pleuritic chest pain, cough, with production of blood-tinged sputum, shortness of breath. Denied any fever or chills. Patient also had lower extremity swelling which has been present for the past 2 years. His chest x-ray in emergency department showed a right mid and left lower lung nonspecific infiltrate possibly related to atelectasis, and some minimal infiltrate within the right midlung. CTA chest revealed a thrombus within the right midlung pulmonary artery, and nonspecific infiltrate with multi focal in the peripheral anterolateral right midlung. No mediastinal or hilar adenopathy. Lab work shows CBC within normal limits, d-dimer was 0.87, electrolytes and renal profile were unremarkable, troponins were less than 0.0122, proBNP was 13, LFTs are within normal limits, renal profile was normal, urinalysis showed no evidence of infection, COVID-19 PCR was negative. Patient was started on IV heparin On the 12/13/2021 patient seen in follow-up on selective care unit, he is resting comfortably in bed, room air pulse ox is 92%, still having pleuritic chest discomfort but it is improved, his cough is improved. Echocardiogram has been done the report is pending, patient remains on heparin infusion, he remains on IV Solu-Medrol, antibiotics, and nebulized treatments. No acute events overnight, vital signs have been stable, CBC is within normal limits on today's labs, his CO2 was 19, the rest of electrolytes and renal profile were unremarkable. Venous Doppler of bilateral lower extremities showed no evidence of DVT, and there was a superficial thrombus and the small saphenous vein in the left leg. Surgical consultation has been requested On 12/14/2021 patient seen in follow-up on selective care unit, is still having pleuritic chest discomfort on the right side, but hemoptysis has resolved. His been getting when necessary doses of IV Dilaudid he is asking if getting a p rescription for Ultram after discharge would be possible. Lung sounds are less congested, he continues on IV steroids nebulized treatments, and azithromycin and Rocephin. Echocardiogram results have been reviewed. Room air pulse ox is 95%, blood pressure has been stable. Patient has been transitioned to oral Eliquis Objective - Vital Signs Vital signs: Vital Signs Temp 98 F 12/14/21 08:40 Pulse 76 12/14/21 09:10 Resp 18 12/14/21 08:40 BP 131/72 12/14/21 08:40 Pulse Ox 95 12/14/21 08:40 FiO2 Intake & Output 12/13/21 12/14/21 12/14/21 18:59 06:59 18:59 Intake Total 216.897 20 10 Balance 216.897 20 10 Intake: IV 20 10 Invasive Line 1 20 10 Intake, IV Titration 216.897 Amount Heparin Sod,Pork in 0.45% 216.897 NaCl 25,000 unit In 0.45 % NaCl 1 250ml.bag @ 18 UNITS/KG/HR 17.146 mls/hr IV .[id number] PILI Rx#: [id number] Other: Voiding Method Toilet Toilet Toilet # Voids 1 1 - Exam GENERAL EXAM: Alert, very pleasant, 46-year-old white male, room air Pulse Ox of 92% comfortable in no apparent distress. HEAD: Normocephalic/atraumatic. EYES: Normal reaction of pupils, equal size. Conjunctiva pink, sclera white. NOSE: Clear with pink turbinates. THROAT: No erythema or exudates. NECK: No masses, no JVD, no thyroid enlargement, no adenopathy. CHEST: No chest wall deformity. Symmetrical expansion. LUNGS: Diminished air entry with diffuse rhonchi and rales CVS: Regular rate and rhythm, normal S1 and S2, no gallops, no murmurs, no rubs ABDOMEN: Soft, nontender. No hepatosplenomegaly, normal bowel sounds, no guarding or rigidity. EXTREMITIES: No clubbing, no edema, no cyanosis, 2+ pulses and upper and lower extremities. MUSCULOSKELETAL: Muscle strength and tone normal. SPINE: No scoliosis or deformity SKIN: No rashes CENTRAL NERVOUS SYSTEM: Alert and oriented -3. No focal deficits, tone is normal in all 4 extremities. PSYCHIATRIC: Alert and oriented -3. Appropriate affect. Intact judgment and insight. - Labs CBC & Chem 7: 12/13/21 07:34 12/13/21 07:34 Labs: Abnormal Lab Results - Last 24 Hours (Table) 12/13/21 12/13/21 12/14/21 Range/Units 16:45 19:58 06:17 POC Glucose (mg/dL) 138 H 150 H 142 H (70-110) mg/dL 12/14/21 Range/Units 11:46 POC Glucose (mg/dL) 130 H (70-110) mg/dL Microbiology - Last 24 Hours (Table) 12/12/21 20:10 Gram Stain - Final Sputum Sputum Culture - Final 12/12/21 06:40 Blood Culture - Preliminary Blood No Growth after 48 hours Assessment and Plan Plan: Assessment: #1. Acute pleuritic right-sided chest pain related to acute pulmonary embolism #2. Hemoptysis related to pulmonary embolism and pulmonary infarction #3. Rule out possibility of underlying pneumonia, patient has been covered with antibiotics #4. Acute exacerbation of COPD and purulent tracheobronchitis #5. Lower extremity swelling, rule out possibility of DVT #6. Chronic smoker #7. Anxiety Plan: Echocardiogram has been reviewed, showing no right ventricular strain Continues on Eliquis Hemoptysis has resolved Vitals are stable From pulmonary perspective patient is clear for discharge home to complete a prednisone course, continue on Eliquis, possibly lifelong in view of unprovoked pulmonary embolism, nebulized treatments, and oral antibiotics Outpatient follow-up with Dr. Keith in 7-10 days I have personally seen and examined the patient, performed the documentation and the assessment and plan as written. Number of minutes spent on the visit: [15] Time with Patient: Less than 30
[2021-12-14 12:51] VITALS: BP 163/73; PULSE 83; RESP 16; TEMP 98.4
== END 2021-12-14 15:26 | disposition left against medical advice (07) | DRG 176 ==
LOC: EC 06:20 → 3SCARD 10:37
PROVIDERS: ADMIT Internal Medicine; ATTEND Internal Medicine
DX: I26.99 Other pulmonary embolism without acute cor pulmonale (principal); J44.1 Chronic obstructive pulmonary disease with (acute) exacerbation; I82.812 Embolism and thrombosis of superficial veins of left lower extremity; J98.11 Atelectasis; Z20.822 Contact with and (suspected) exposure to COVID-19; J20.9 Acute bronchitis, unspecified; E66.9 Obesity, unspecified; Z53.29 Procedure and treatment not carried out because of patient's decision for other reasons; Z68.31 Body mass index [BMI] 31.0-31.9, adult; F41.9 Anxiety disorder, unspecified; F17.210 Nicotine dependence, cigarettes, uncomplicated; Z71.6 Tobacco abuse counseling; Z88.2 Allergy status to sulfonamides; Z82.3 Family history of stroke
CPT/HCPCS: 36415; 71046; 71275; 80048; 80053; 81003; 83036; 83605; 83690; 83735; 83880; 84145; 84484; 85025; 85379; 85610; 85730; 87040; 87070; 87205; 87635; 93005; 93306; 93970; 94640; 96365; 96366; 96368; 96375; 96376; 99285

== ENCOUNTER → 2022-02-03 | Outpatient (CLI) | payer OTHER ==
--- NOTE | 2022-02-03 15:23 | CT ---
CT CHEST FOR PULMONARY EMBOLISM. EXAMINATION TYPE: CT angio chest DATE OF EXAM: 02/03/2022 INDICATION: f/u PE CT DLP: 326.9 mGycm, Automated exposure control for dose reduction was used. CONTRAST: Patient injected with 70cc mL of Isovue 370. COMPARISON: 12/12/2021 TECHNIQUE: CT of the chest is performed on a spiral scan at 2 mm thick sections. Study is performed with intravenous contrast timed for evaluation for pulmonary embolism. This will limit additional po rtions of the evaluation. 3-D MIP images reconstructed by the technologist are reviewed on the compu ter in the coronal and sagittal planes. FINDINGS: No persistent filling defects are evident to suggest an acute pulmonary embolism. Previous right pulm onary embolism was not evident on the current examination. No mediastinal or hilar adenopathy enlarged by CT criteria is evident. The ascending aorta diameter at the level of the main pulmonary artery is 3.1 cm. The main pulmonary artery diameter at the bifur cation is 2.3 cm. Consolidation within the anterior lateral right midlung has improved over the interval. Some mild res idual remains present. Limited CT section through the upper abdomen are unremarkable. IMPRESSIONS: 1. No acute pulmonary embolism. Prior right-sided pulmonary embolism appears resolved without residua l identified at this time. 2. Resolving consolidation anterolateral right midlung.
== END | disposition home or self-care (01) ==
LOC: RADCTMAIN 13:44
PROVIDERS: ATTEND Internal Medicine Critical Care Medicine
DX: I26.99 Other pulmonary embolism without acute cor pulmonale (principal); R91.8 Other nonspecific abnormal finding of lung field
CPT/HCPCS: 71275; Q9967

== ENCOUNTER 2023-02-26 13:37 | Emergency (ER) | payer OTHER ==
[2023-02-26 14:06] VITALS: BP 175/86; PULSE 73; TEMP 98.2
[2023-02-26] MEDS ORDERED: SODIUM CHLORIDE 0.9% 500 ML 500 ML IV STA (14:35)
[2023-02-26 14:59] LABS: Basophils % (A) 0 %; Eosinophils # (A) 0.4 k/uL (0-0.7); Eosinophils % (A) 5 %; HGB 14.9 gm/dL (13.0-17.5); Lymphocytes # (A) 2.7 k/uL (1.0-4.8); Lymphocytes % (A) 36 %; MCH 32.2 pg (25.0-35.0); MCHC 33.9 g/dL (31.0-37.0); MCV 95.1 fL (80.0-100.0); Monocytes # (A) 0.3 k/uL (0-1.0); Monocytes % (A) 4 %; Neutrophils % (A) 54 %; Platelet Count 200 k/uL (150-450); RBC 4.63 m/uL (4.30-5.90); WBC 7.5 k/uL (3.8-10.6)
[2023-02-26 15:19] LABS: ALT 19 U/L (4-49); AST 22 U/L (17-59); African American GFR (CKD) >90 (>60 ml/min/1.73 sqM); Albumin 3.9 g/dL (3.5-5.0); Alkaline Phosphatase 62 U/L (38-126); Amylase 70 U/L (30-110); Anion Gap 6 mmol/L; Blood Urea Nitrogen 10 mg/dL (9-20); Calcium 9.5 mg/dL (8.4-10.2); Carbon Dioxide 27 mmol/L (22-30); Chloride 105 mmol/L (98-107); Glucose 102 mg/dL (74-99); Lipase 112 U/L (23-300); Magnesium 2.1 mg/dL (1.6-2.3); Non-African American GFR(CKD) >90 (>60 ml/min/1.73 sqM); Potassium 3.8 mmol/L (3.5-5.1); Sodium 138 mmol/L (137-145); Total Bilirubin 0.3 mg/dL (0.2-1.3); Total Protein 6.5 g/dL (6.3-8.2)
[2023-02-26 15:25] LABS: INR 0.9 (<1.2); Prothrombin Time 9.7 sec (10.0-12.5)
--- NOTE | 2023-02-26 15:27 | ED ---
General Adult HPI - General Chief complaint: Recheck/Abnormal Lab/Rx Stated complaint: trouble breathing Time Seen by Provider: 02/26/23 14:26 Source: patient Mode of arrival: ambulatory Limitations: no limitations - History of Present Illness Initial comments: 39-year-old male presenting with chief complaint of right-sided rib pain. Pain started about an hour prior to arrival. States that the pain is sharp, worse with deep breaths and range of motion. No injury or trauma. Patient does have history of pulmonary embolism, stopped eliquis months ago. No lower extremity swelling. No palpitations. No recent surgery or travel. No nausea, vomiting, abdominal pain. No fevers or chills. No cough, congestion, sore throat. While obtaining the history the patient states that the pain has improved and is now only a soreness. - Related Data Previous Rx's Medication Instructions Recorded Albuterol Inhaler [Ventolin Hfa 1 - 2 puff INHALATION RT-Q6H PRN 12/13/21 Inhaler] 30 Days #1 dispenser Apixaban [Eliquis Starter Pack 5 - 10 mg PO DIRECTED 30 Days 12/13/21 (for VTE)] #1 each Apixaban [Eliquis] 5 mg PO BID 30 Days #60 tab 12/13/21 Ipratropium-Albuterol Nebulize 3 ml INHALATION QID 30 Days #390 ml 12/13/21 [Duoneb 0.5 mg-3 mg/3 ml Soln] predniSONE 0 mg PO DIRECTED 16 Days #40 tab 12/13/21 cefUROXime axetiL [Ceftin] 500 mg PO BID 7 Days #14 tab 12/14/21 Allergies Allergy/AdvReac Type Severity Reaction Status Date / Time sulfamethoxazole Allergy Swelling Verified 02/26/23 13:59 [From Bactrim] trimethoprim [From Bactrim] Allergy Swelling Verified 02/26/23 13:59 Review of Systems ROS Statement: Those systems with pertinent positive or pertinent negative responses have been documented in the HPI. ROS Other: All systems not noted in ROS Statement are negative. Past Medical History Past Medical History: No Reported History History of Any Multi-Drug Resistant Organisms: None Reported Past Surgical History: No Surgical Hx Reported Past Psychological History: No Psychological Hx Reported Smoking Status: Current every day smoker Past Alcohol Use History: None Reported Past Drug Use History: Marijuana - Past Family History Father Family Medical History: No Reported History Mother Family Medical History: CVA/TIA General Exam Limitations: no limitations General appearance: alert, in no apparent distress Head exam: Present: atraumatic, normocephalic, normal inspection Eye exam: Present: normal appearance, EOMI Neck exam: Present: normal inspection, full ROM Respiratory exam: Present: normal lung sounds bilaterally. Absent: respiratory distress, wheezes, rales, rhonchi, stridor, chest wall tenderness Cardiovascular Exam: Present: regular rate, normal rhythm, normal heart sounds. Absent: systolic murmur, diastolic murmur, rubs, gallop, clicks GI/Abdominal exam: Present: soft. Absent: distended, tenderness, guarding, rebound, rigid Extremities exam: Absent: pedal edema Neurological exam: Present: alert, oriented X3 Psychiatric exam: Present: normal affect, normal mood Skin exam: Present: warm, dry, intact, normal color. Absent: rash Course Vital Signs 02/26/23 02/26/23 13:57 16:47 Temperature 98.2 F Pulse Rate 73 Respiratory 18 16 Rate Blood Pressure 175/86 O2 Sat by Pulse 96 Oximetry EKG Findings - EKG Comments: EKG Findings:: Sinus rhythm ventricular rate 67. IL interval 138. QRS 93. QT 365. QTc 381. Right axis deviation. Medical Decision Making - Medical Decision Making Was pt. sent in by a medical professional or institution ([facility], BAR WAITER/WAITRESS, urgent care, hospital, or care home...) When possible be specific @ -No Did you speak to anyone other than the patient for history (EMS, parent, family, police, friend...)? What history was obtained from this source @ -No Did you review nursing and triage notes (agree or disagree)? Why? @ -I reviewed and agree with nursing and triage notes Were old charts reviewed (outside hosp., previous admission, EMS record, old EKG, old radiological studies, urgent care reports/EKG's, care home records)? Report findings @ -No old charts were reviewed Differential Diagnosis (chest pain, altered mental status, abdominal pain women, abdominal pain men, vaginal bleeding, weakness, fever, dyspnea, syncope, headache, dizziness, GI bleed, back pain, seizure, CVA, palpatations, mental health, musculoskeletal)? @ -MDM Differential Chest Pain: Stable Angina, Unstable Angina, STEMI, NSTEMI Aortic Dissection, Pneumothorax, Musculoskeletal, Esophageal Spasm GERD, Cholecystitis, Pancreatitis, Zost er This is not meant to be an all-inclusive list. EKG interpreted by me (3pts min.). @ -As above X-rays interpreted by me (1pt min.). @ -chest X-ray negative for acute process CT interpreted by me (1pt min.). @ -None done U/S interpreted by me (1pt. min.). @ -None done What testing was considered but not performed or refused? (CT, X-rays, U/S, labs)? Why? @ -None What meds were considered but not given or refused? Why? @ -None Did you discuss the management of the patient with other professionals (professionals i.e. , PA, BAR WAITER/WAITRESS, lab, RT, psych nurse, social psychologist, county records management officer, teacher, founder and chief executive officer, family caseworker)? Give summary @ -No Was smoking cessation discussed for >3mins.? @ -No Was critical care preformed (if so, how long)? @ -No Were there social determinants of health that impacted care today? How? (Homelessness, low income, unemployed, alcoholism, drug addiction, transportation, low edu. Level, literacy, decrease access to med. care, senior care, rehab)? @ -No Was there de-escalation of care discussed even if they declined (Discuss DNR or withdrawal of care, Hospice)? DNR status @ -No What co-morbidities impacted this encounter? (DM, HTN, Smoking, COPD, CAD, Cancer, CVA, ARF, Chemo, Hep., AIDS, mental health diagnosis, sleep apnea, morb id obesity)? @ -History of pulmonary embolism Was patient admitted / discharged? Hospital course, mention meds given and route, prescriptions, significant lab abnormalities, going to OR and other pertinent info. @ -47-year-old male presenting with chief complaint of sharp rib pain that started an hour prior to arrival. While obtaining history the patient states that the pain is significantly improved. Physical exam is conducted. Negative chest x-ray. EKG shows no ischemic changes. Lab work is grossly negative including negative d-dimer and troponin. On reassessment patient is resting comfortably and having no complaints of pain. Discharge home. Follow-up with PCP. Report back to ER with any new or worsening symptoms. Discussed return parameters and answered all questions. Patient conveyed verbal understanding and agreed to the plan. I discussed this case in detail with my attending Dr. Uriostegui Undiagnosed new problem with uncertain prognosis? @ -No Drug Therapy requiring intensive monitoring for toxicity (Heparin, Nitro, Insulin, Cardizem)? @ -No Were any procedures done? @ -No Diagnosis/symptom? @ -Rib pain Acute, or Chronic, or Acute on Chronic? @ -Acute Uncomplicated (without systemic symptoms) or Complicated (systemic symptoms)? @ -uncomplicated Side effects of treatment? @ -No Exacerbation, Progression, or Severe Exacerbation? @ -No Poses a threat to life or bodily function? How? (Chest pain, [place], HI, pneumonia, PE, COPD, DKA, ARF, appy, cholecystitis, CVA, Diverticulitis, Homicidal, Suicidal, threat to staff... and all critical care pts) @ -No - Lab Data Result diagrams: 02/26/23 14:41 02/26/23 14:41 Lab Results 02/26/23 02/26/23 02/26/23 Range/Units 14:41 14:41 14:41 WBC 7.5 (3.8-10.6) k/uL RBC 4.63 (4.30-5.90) m/uL Hgb 14.9 (13.0-17.5) gm/dL Hct 44.0 (39.0-53.0) % MCV 95.1 (80.0-100.0) fL MCH 32.2 (25.0-35.0) pg MCHC 33.9 (31.0-37.0) g/dL RDW 12.0 (11.5-15.5) % Plt Count 200 (150-450) k/uL MPV 7.0 Neutrophils % 54 % Lymphocytes % 36 % Monocytes % 4 % Eosinophils % 5 % Basophils % 0 % Neutrophils # 4.0 (1.3-7.7) k/uL Lymphocytes # 2.7 (1.0-4.8) k/uL Monocytes # 0.3 (0-1.0) k/uL Eosinophils # 0.4 (0-0.7) k/uL Basophils # 0.0 (0-0.2) k/uL PT 9.7 L (10.0-12.5) sec INR 0.9 (<1.2) APTT 25.0 (22.0-30.0) sec D-Dimer 0.24 (<0.60) mg/L FEU Sodium (137-145) mmol/L Potassium (3.5-5.1) mmol/L Chloride (98-107) mmol/L Carbon Dioxide (22-30) mmol/L Anion Gap mmol/L BUN (9-20) mg/dL Creatinine (0.66-1.25) mg/dL Est GFR (CKD-EPI)AfAm (>60 ml/min/1.73 sqM) Est GFR (CKD-EPI)NonAf (>60 ml/min/1.73 sqM) Glucose (74-99) mg/dL Calcium (8.4-10.2) mg/dL Magnesium (1.6-2.3) mg/dL Total Bilirubin (0.2-1.3) mg/dL AST (17-59) U/L ALT (4-49) U/L Alkaline Phosphatase (38-126) U/L Troponin I (0.000-0.034) ng/mL Total Protein (6.3-8.2) g/dL Albumin (3.5-5.0) g/dL Amylase (30-110) U/L Lipase (23-300) U/L Urine Color Yellow Urine Appearance Cloudy (Clear) Urine pH 7.0 (5.0-8.0) Ur Specific Ledger 1.022 (1.001-1.035) Urine Protein Negative (Negative) Urine Glucose (UA) Negative (Negative) Urine Ketones Negative (Negative) Urine Blood Negative (Negative) Urine Nitrite Negative (Negative) Urine Bilirubin Negative (Negative) Urine Urobilinogen <2.0 (<2.0) mg/dL Ur Leukocyte Esterase Negative (Negative) Urine RBC <1 (0-5) /hpf Urine WBC 5 (0-5) /hpf Amorphous Sediment Moderate H (None) /hpf Urine Bacteria Rare H (None) /hpf Urine Mucus Occasional H (None) /hpf 02/26/23 02/26/23 Range/Units 14:41 14:41 WBC (3.8-10.6) k/uL RBC (4.30-5.90) m/uL Hgb (13.0-17.5) gm/dL Hct (39.0-53.0) % MCV (80.0-100.0) fL MCH (25.0-35.0) pg MCHC (31.0-37.0) g/dL RDW (11.5-15.5) % Plt Count (150-450) k/uL MPV Neutrophils % % Lymphocytes % % Monocytes % % Eosinophils % % Basophils % % Neutrophils # (1.3-7.7) k/uL Lymphocytes # (1.0-4.8) k/uL Monocytes # (0-1.0) k/uL Eosinophils # (0-0.7) k/uL Basophils # (0-0.2) k/uL PT (10.0-12.5) sec INR (<1.2) APTT (22.0-30.0) sec D-Dimer (<0.60) mg/L FEU Sodium 138 (137-145) mmol/L Potassium 3.8 (3.5-5.1) mmol/L Chloride 105 (98-107) mmol/L Carbon Dioxide 27 (22-30) mmol/L Anion Gap 6 mmol/L BUN 10 (9-20) mg/dL Creatinine 0.76 (0.66-1.25) mg/dL Est GFR (CKD-EPI)AfAm >90 (>60 ml/min/1.73 sqM) Est GFR (CKD-EPI)NonAf >90 (>60 ml/min/1.73 sqM) Glucose 102 H (74-99) mg/dL Calcium 9.5 (8.4-10.2) mg/dL Magnesium 2.1 (1.6-2.3) mg/dL Total Bilirubin 0.3 (0.2-1.3) mg/dL AST 22 (17-59) U/L ALT 19 (4-49) U/L Alkaline Phosphatase 62 (38-126) U/L Troponin I <0.012 (0.000-0.034) ng/mL Total Protein 6.5 (6.3-8.2) g/dL Albumin 3.9 (3.5-5.0) g/dL Amylase 70 (30-110) U/L Lipase 112 (23-300) U/L Urine Color Urine Appearance (Clear) Urine pH (5.0-8.0) Ur Specific Ledger (1.001-1.035) Urine Protein (Negative) Urine Glucose (UA) (Negative) Urine Ketones (Negative) Urine Blood (Negative) Urine Nitrite (Negative) Urine Bilirubin (Negative) Urine Urobilinogen (<2.0) mg/dL Ur Leukocyte Esterase (Negative) Urine RBC (0-5) /hpf Urine WBC (0-5) /hpf Amorphous Sediment (None) /hpf Urine Bacteria (None) /hpf Urine Mucus (None) /hpf Disposition Clinical Impression: Rib pain Disposition: HOME SELF-CARE Condition: Good Instructions (If sedation given, give patient instructions): Chest Pain (ED) Additional Instructions: Follow-up with PCP. Report back to ER with any new or worsening symptoms. Is patient prescribed a controlled substance at d/c from ED?: No Referrals: Grant Pinto [Primary Care Provider] - 1-2 days Time of Disposition: 16:29
--- NOTE | 2023-02-26 15:30 | XR ---
EXAMINATION TYPE: XR chest 2V DATE OF EXAM: 02/26/2023 2:54 PM CLINICAL INDICATION:Male, 47 years old with history of Chest Pain; [facility] COMPARISON: Chest radiographs from 12/12/2021 TECHNIQUE: XR chest 2V Frontal and lateral views of the chest. FINDINGS: Lungs/Pleura: There is no evidence of pleural effusion, focal consolidation, or pneumothorax. Pulmonary vascularity: Unremarkable. Heart/mediastinum: Cardiomediastinal silhouette is unremarkable. Musculoskeletal: No acute osseous pathology. IMPRESSION: No acute cardiopulmonary disease/process.
[2023-02-26 16:10] LABS: Amorphous Sediment,Urine Moderate /hpf; Appearance,Urine Cloudy (Clear); Bacteria,Urine Rare /hpf; Bilirubin,Urine Negative (Negative); Blood,Urine Negative (Negative); Color,Urine Yellow; Glucose,Urine (UA) Negative (Negative); Ketones,Urine Negative (Negative); Leukocyte Esterase,Urine Negative (Negative); Mucus,Urine Occasional /hpf; Nitrite,Urine Negative (Negative); Protein,Urine Negative (Negative); RBC,Urine <1 /hpf (0-5); Specific Gravity,Urine 1.022 (1.001-1.035); Urobilinogen,Urine <2.0 mg/dL (<2.0); WBC,Urine 5 /hpf (0-5)
[2023-02-26 16:56] VITALS: RESP 16
== END 2023-02-26 16:48 | disposition home or self-care (01) ==
LOC: EC 13:37
DX: R07.81 Pleurodynia (principal); F17.200 Nicotine dependence, unspecified, uncomplicated; F12.90 Cannabis use, unspecified, uncomplicated; Z88.1 Allergy status to other antibiotic agents; Z88.2 Allergy status to sulfonamides
CPT/HCPCS: 36415; 71046; 80053; 81001; 82150; 83690; 83735; 84484; 85025; 85379; 85610; 85730; 93005; 96360; 96361; 99284

== ENCOUNTER 2024-12-13 01:47 | Emergency (ER) | payer OTHER ==
--- NOTE | 2024-12-13 02:45 | ED ---
General Adult HPI - General Chief complaint: Extremity Injury, Lower Stated complaint: Left knee pain, SOB Time Seen by Provider: 12/13/24 02:01 Source: patient, RN notes reviewed, old records reviewed Mode of arrival: ambulatory Limitations: no limitations - History of Present Illness Initial comments: 49-year-old male presenting with left calf pain and pain behind the left knee. Patient has history of DVT and is concerned that this could be related. He does report some bilateral lower extremity edema but states that the pain was behind his left leg and into his left calf. Patient states he is not currently on any anticoagulation and that his previous blood clot was approximately 3 years ago. No central chest pain. Mild dyspnea. - Related Data Previous Rx's Medication Instructions Recorded Albuterol Inhaler [Ventolin Hfa 1 - 2 puff INHALATION RT-Q6H PRN 12/13/21 Inhaler] 30 Days #1 dispenser Apixaban [Eliquis Starter Pack 5 - 10 mg PO DIRECTED 30 Days 12/13/21 (for VTE)] #1 each Apixaban [Eliquis] 5 mg PO BID 30 Days #60 tab 12/13/21 Ipratropium-Albuterol Nebulize 3 ml INHALATION QID 30 Days #390 ml 12/13/21 [Duoneb 0.5 mg-3 mg/3 ml Soln] predniSONE 0 mg PO DIRECTED 16 Days #40 tab 12/13/21 cefuroxime axetiL [Ceftin] 500 mg PO BID 7 Days #14 tab 12/14/21 Apixaban [Eliquis Starter Pack 5 - 10 mg PO DIRECTED 30 Days 12/13/24 (for VTE)] #1 each Azithromycin [Zithromax Z Pack] 1 tab PO DIRECTED #6 tab 12/13/24 Allergies Allergy/AdvReac Type Severity Reaction Status Date / Time sulfamethoxazole Allergy Swelling Verified 04/15/23 19:41 [From Bactrim] trimethoprim [From Bactrim] Allergy Swelling Verified 04/15/23 19:41 Review of Systems ROS Statement: Those systems with pertinent positive or pertinent negative responses have been documented in the HPI. ROS Other: All systems not noted in ROS Statement are negative. Past Medical History Past Medical History: No Reported History, Pulmonary Embolus (PE) History of Any Multi-Drug Resistant Organisms: None Reported Past Surgical History: Hernia Repair Past Psychological History: No Psychological Hx Reported Smoking Status: Current every day smoker Past Alcohol Use History: None Reported Past Drug Use History: Marijuana, Methamphetamine - Past Family History Father Family Medical History: No Reported History Mother Family Medical History: CVA/TIA General Exam Limitations: no limitations General appearance: alert, in no apparent distress Head exam: Present: atraumatic, normocephalic Eye exam: Present: normal appearance, PERRL ENT exam: Present: normal exam Neck exam: Present: normal inspection. Absent: tenderness, meningismus Respiratory exam: Present: decreased breath sounds. Absent: respiratory di stress Cardiovascular Exam: Present: regular rate, normal rhythm GI/Abdominal exam: Present: soft, distended. Absent: tenderness, guarding, rebound Extremities exam: Present: pedal edema, calf tenderness (Left leg) Neurological exam: Present: alert, oriented X3 Psychiatric exam: Present: normal affect, normal mood Skin exam: Present: warm, dry, intact Course Vital Signs 12/13/24 12/13/24 12/13/24 01:52 02:36 04:46 Temperature 98.5 F 98.7 F Pulse Rate 80 71 77 Respiratory 18 19 17 Rate Blood Pressure 141/85 134/82 141/95 O2 Sat by Pulse 95 96 97 Oximetry Medical Decision Making - Medical Decision Making Was pt. sent in by a medical professional or institution (NATE Montejo, PHYSICIAN'S ASSISTANT, urgent care, hospital, or long term...) When possible be specific @ -No Did you speak to anyone other than the patient for history (EMS, parent, family, police, friend...)? What history was obtained from this source @ -No Did you review nursing and triage notes (agree or disagree)? Why? @ -I reviewed and agree with nursing and triage notes Were old charts reviewed (outside hosp., previous admission, EMS record, old EKG, old radiological studies, urgent care reports/EKG's, long term records)? Report findings @ -No old charts were reviewed Differential Diagnosis (chest pain, altered mental status, abdominal pain women, abdominal pain men, vaginal bleeding, weakness, fever, dyspnea, syncope, headache, dizziness, GI bleed, back pain, seizure, CVA, palpatations, mental health, musculoskeletal)? @ -Not applicable EKG interpreted by me (3pts min.). @Sinus rhythm rate of 73, NE interval 163, QRS duration 96, QTc [address] segment elevation. X-rays interpreted by me (1pt min.). @ -None done CT interpreted by me (1pt min.). @ -CT is negative for central pulmonary embolism, poor contrast timing resulting in decrease sensitivity for peripheral pulmonary embolism. U/S interpreted by me (1pt. min.). @ -Positive for DVT in the left leg. What testing was considered but not performed or refused? (CT, X-rays, U/S, labs)? Why? @ -None What meds were considered but not given or refused? Why? @ -None Did you discuss the management of the patient with other professionals (professionals i.e. , PA, PHYSICIAN'S ASSISTANT, lab, RT, psych nurse, web content & social media manager, nanosystems engineer, teacher, inspectors and regulatory officers, rn case manager hospice)? Give summary @ -No Was smoking cessation discussed for >3mins.? @ -No Was critical care preformed (if so, how long)? @ -No Were there social determinants of health that impacted care today? How? (Homelessness, low income, unemployed, alcoholism, drug addiction, transportation, low edu. Level, literacy, decrease access to med. care, nursing home, rehab)? @ -No Was there de-escalation of care discussed even if they declined (Discuss DNR or withdrawal of care, Hospice)? DNR status @ -No What co-morbidities impacted this encounter? (DM, HTN, Smoking, COPD, CAD, Cancer, CVA, ARF, Chemo, Hep., AIDS, mental health diagnosis, sleep apnea, morbid obesity)? @ -[Prior history of DVT. Was patient admitted / discharged? Hospital course, mention meds given and route, prescriptions, significant lab abnormalities, going to OR and other pertinent info. @ -49-year-old male with left leg pain concerning for DVT and some right-sided pleuritic chest pain with cough. CT angiography is negative for central pulmonary embolism, there is some airspace opacity, possible pneumonia. Ultrasound is positive for DVT and the patient is started on Eliquis. Laboratory testing is unremarkable. Undiagnosed new problem with uncertain prognosis? @ -No Drug Therapy requiring intensive monitoring for toxicity (Heparin, Nitro, Insulin, Cardizem)? @ -No Were any procedures done? @ -No Diagnosis/symptom? @ -DVT Acute, or Chronic, or Acute on Chronic? @Acute Uncomplicated (without systemic symptoms) or Complicated (systemic symptoms)? @ -Complicated Side effects of treatment? @ -No Exacerbation, Progression, or Severe Exacerbation? @ -No Poses a threat to life or bodily function? How? (Chest pain, USA, NC, pneumonia, PE, COPD, DKA, ARF, appy, cholecystitis, CVA, Diverticulitis, Homicidal, Suicidal, threat to staff... and all critical care pts) @Low to moderate risk - Lab Data Result diagrams: 12/13/24 02:47 12/13/24 02:47 Lab Results 12/13/24 12/13/24 12/13/24 Range/Units 02:47 02:47 02:47 WBC 8.20 (4.50-10.00) 10*3/uL RBC 4.78 (4.40-5.60) 10*6/uL Hgb 15.4 (13.0-17.0) g/dL Hct 42.6 (39.6-50.0) % MCV 89.1 (80.0-97.0) fL MCH 32.2 H (27.0-32.0) pg MCHC 36.2 (32.0-37.0) g/dL Plt Count 124 L (140-440) 10*3/uL MPV 9.9 (9.5-12.2) fL Immature Gran % (Auto) 0.4 % Neutrophils % 70.6 % Lymphocytes % 17.9 % Monocytes % 7.3 % Eosinophils % 3.2 % Basophils % 0.6 % Immature Gran # 0.03 (0.00-0.04) 10*3/uL Neutrophils # 5.79 (1.80-7.70) 10*3/uL Lymphocytes # 1.47 (0.90-5.00) 10*3/uL Monocytes # 0.60 (0.20-1.00) 10*3/uL Eosinophils # 0.26 (0.04-0.35) 10*3/uL Basophils # 0.05 (0.00-0.10) 10*3/uL Immature Plt Fraction 2.1 (1.1-6.1) % PT 10.3 (10.0-12.5) sec INR 0.9 (<1.2) APTT 22.0 (22.0-30.0) sec Sodium 133 L (137-145) mmol/L Potassium 4.3 (3.5-5.1) mmol/L Chloride 103 (98-107) mmol/L Carbon Dioxide 24 (22-30) mmol/L Anion Gap 6 mmol/L BUN 12 (9-20) mg/dL Creatinine 0.78 (0.66-1.25) mg/dL Est GFR (CKD-EPI)AfAm >90 (>60 ml/min/1.73 sqM) Est GFR (CKD-EPI)NonAf >90 (>60 ml/min/1.73 sqM) Glucose 115 H (74-99) mg/dL Plasma Lactic Acid Brant (0.7-2.0) mmol/L Calcium 9.2 (8.4-10.2) mg/dL Magnesium 2.0 (1.6-2.3) mg/dL Total Bilirubin 0.6 (0.2-1.3) mg/dL AST 29 (17-59) U/L ALT 32 (4-49) U/L Alkaline Phosphatase 74 (38-126) U/L Troponin I (0.000-0.034) ng/mL NT-Pro-B Natriuret Pep <20 pg/mL Total Protein 7.1 (6.3-8.2) g/dL Albumin 4.3 (3.5-5.0) g/dL 12/13/24 12/13/24 Range/Units 02:47 02:47 WBC (4.50-10.00) 10*3/uL RBC (4.40-5.60) 10*6/uL Hgb (13.0-17.0) g/dL Hct (39.6-50.0) % MCV (80.0-97.0) fL MCH (27.0-32.0) pg MCHC (32.0-37.0) g/dL Plt Count (140-440) 10*3/uL MPV (9.5-12.2) fL Immature Gran % (Auto) % Neutrophils % % Lymphocytes % % Monocytes % % Eosinophils % % Basophils % % Immature Gran # (0.00-0.04) 10*3/uL Neutrophils # (1.80-7.70) 10*3/uL Lymphocytes # (0.90-5.00) 10*3/uL Monocytes # (0.20-1.00) 10*3/uL Eosinophils # (0.04-0.35) 10*3/uL Basophils # (0.00-0.10) 10*3/uL Immature Plt Fraction (1.1-6.1) % PT (10.0-12.5) sec INR (<1.2) APTT (22.0-30.0) sec Sodium (137-145) mmol/L Potassium (3.5-5.1) mmol/L Chloride (98-107) mmol/L Carbon Dioxide (22-30) mmol/L Anion Gap mmol/L BUN (9-20) mg/dL Creatinine (0.66-1.25) mg/dL Est GFR (CKD-EPI)AfAm (>60 ml/min/1.73 sqM) Est GFR (CKD-EPI)NonAf (>60 ml/min/1.73 sqM) Glucose (74-99) mg/dL Plasma Lactic Acid Brant 1.3 (0.7-2.0) mmol/L Calcium (8.4-10.2) mg/dL Magnesium (1.6-2.3) mg/dL Total Bilirubin (0.2-1.3) mg/dL AST (17-59) U/L ALT (4-49) U/L Alkaline Phosphatase (38-126) U/L Troponin I <0.012 (0.000-0.034) ng/mL NT-Pro-B Natriuret Pep pg/mL Total Protein (6.3-8.2) g/dL Albumin (3.5-5.0) g/dL Disposition Clinical Impression: DVT (deep venous thrombosis) Disposition: HOME SELF-CARE Condition: Fair Instructions (If sedation given, give patient instructions): Deep Vein Thrombosis (ED) Prescriptions: Apixaban [Eliquis Starter Pack (for VTE)] 5 - 10 mg PO DIRECTED 30 Days #1 each Azithromycin [Zithromax Z Pack] 1 tab PO DIRECTED #6 tab Is patient prescribed a controlled substance at d/c from ED?: No Referrals: None,Stated [Primary Care Provider] - 1-2 days Irina Eldridge, PAC [REFERRING] - 1-2 days Time of Disposition: 04:20
[2024-12-13 03:09] LABS: Basophils # (A) 0.05 10*3/uL (0.00-0.10); Basophils % (A) 0.6 %; Eosinophils # (A) 0.26 10*3/uL (0.04-0.35); Eosinophils % (A) 3.2 %; HCT 42.6 % (39.6-50.0); HGB 15.4 g/dL (13.0-17.0); Immature Platelet Fraction 2.1 % (1.1-6.1); Lymphocytes # (A) 1.47 10*3/uL (0.90-5.00); Lymphocytes % (A) 17.9 %; MCH 32.2 pg (27.0-32.0); MCHC 36.2 g/dL (32.0-37.0); MCV 89.1 fL (80.0-97.0); Monocytes # (A) 0.60 10*3/uL (0.20-1.00); Monocytes % (A) 7.3 %; Neutrophils # (A) 5.79 10*3/uL (1.80-7.70); Neutrophils % (A) 70.6 %; Platelet Count 124 10*3/uL (140-440); RBC 4.78 10*6/uL (4.40-5.60); RDW 11.3 % (11.5-14.5); WBC 8.20 10*3/uL (4.50-10.00)
--- NOTE | 2024-12-13 03:28 | US ---
EXAM: US Duplex Left Lower Extremity Veins CLINICAL HISTORY: Pain and swelling, hx of DVT TECHNIQUE: Real-time duplex ultrasound scan of the left lower extremity veins integrating B-mode two-dimensional vascular structure, Doppler spectral analysis, color flow Doppler imaging and compression. COMPARISON: Bilateral lower extremity duplex 12/12/2021 FINDINGS: Deep veins: Occlusive thrombus involving the distal left femoral vein, extending into the left popliteal vein in the proximal calf veins. There is partially occlusive thrombus in the mid left femoral vein. The left distal external iliac vein, common femoral vein and proximal femoral veins are patent. Superficial veins: Unremarkable. No thrombus in the saphenofemoral junction. Soft tissues: No acute findings. No popliteal cyst. IMPRESSION: Occlusive thrombus involving the distal left femoral vein, extending into the left popliteal vein in the proximal calf veins. There is partially occlusive thrombus involving the mid left femoral vein.
[2024-12-13 03:31] LABS: INR 0.9 (<1.2); Partial Thromboplastin Time 22.0 sec (22.0-30.0); Prothrombin Time 10.3 sec (10.0-12.5)
[2024-12-13 03:38] LABS: ALT 32 U/L (4-49); African American GFR (CKD) >90 (>60 ml/min/1.73 sqM); Albumin 4.3 g/dL (3.5-5.0); Anion Gap 6 mmol/L; Blood Urea Nitrogen 12 mg/dL (9-20); Calcium 9.2 mg/dL (8.4-10.2); Carbon Dioxide 24 mmol/L (22-30); Chloride 103 mmol/L (98-107); Glucose 115 mg/dL (74-99); Non-African American GFR(CKD) >90 (>60 ml/min/1.73 sqM); Sodium 133 mmol/L (137-145); Total Protein 7.1 g/dL (6.3-8.2)
[2024-12-13 03:40] LABS: AST 29 U/L (17-59); Alkaline Phosphatase 74 U/L (38-126); Magnesium 2.0 mg/dL (1.6-2.3); Potassium 4.3 mmol/L (3.5-5.1)
--- NOTE | 2024-12-13 03:40 | CT ---
EXAM: CT Angiography Chest With Intravenous Contrast CLINICAL HISTORY: Pleuritic chest pain, short of breath TECHNIQUE: Axial computed tomographic angiography images of the chest with intravenous contrast. CTDI is 38.5 mGy and DLP is 433 mGy-cm. This CT exam was performed using one or more of the following dose reduction techniques: automated exposure control, adjustment of the mA and/or kV according to patient size, and/or use of iterative reconstruction technique. MIP reconstructed images were created and reviewed. COMPARISON: No relevant prior studies available. FINDINGS: Pulmonary arteries: Suboptimal only faint opacification of the pulmonary artery tree, with contrast primarily in the pulmonary veins. No obvious large/central saddle embolus. The proximal segmental pulmonary artery branches appear to be clear. Several distal subsegmental branches are limited diagnostic quality. Aorta: The aorta is normal in caliber without dissection or aneurysm. Lungs: No focal airspace consolidation with minimal dependent subsegmental changes noted involving the posterior right lower lobe and inferolateral right middle lobe. Pleural space: Unremarkable. No significant effusion. No pneumothorax. Heart: Moderate coronary artery calcification in the LAD. Bones/joints: No acute fracture. No dislocation. Soft tissues: Unremarkable. Lymph nodes: Unremarkable. No enlarged lymph nodes. IMPRESSION: 1. Suboptimal only faint opacification of the pulmonary artery tree, with contrast primarily in the pulmonary veins. No obvious large/central saddle embolus. The proximal segmental pulmonary artery branches appear to be clear. Several distal subsegmental branches are limited diagnostic quality. 2. No focal airspace consolidation with minimal dependent subsegmental changes noted involving the posterior right lower lobe and inferolateral right middle lobe. No pleural effusion or pneumothorax.
[2024-12-13 03:46] LABS: NT-Pro-B-Type Natriuretic Pept <20 pg/mL
[2024-12-13] MEDS: cefTRIAXone IN SWFI 1,000 MG/10 ML SYRINGE IVP STA (04:42)
[2024-12-13] MEDS: APIXABAN 5 MG TAB PO STA (04:42)
[2024-12-13 04:52] VITALS: BP 141/95; PULSE 77; RESP 17; TEMP 98.7
== END 2024-12-13 04:52 | disposition home or self-care (01) ==
LOC: EC 01:47
DX: I82.412 Acute embolism and thrombosis of left femoral vein (principal); F17.200 Nicotine dependence, unspecified, uncomplicated; Z88.1 Allergy status to other antibiotic agents; Z88.2 Allergy status to sulfonamides
CPT/HCPCS: 36415; 93005; 83880; 80053; 83605; 83735; 84484; 85025; 85610; 85730; 93971; 71275; 99284; 96374; J0696; Q9967

== ENCOUNTER 2024-12-14 10:27 | Emergency (ER) | payer OTHER ==
[2024-12-14 10:36] VITALS: TEMP 98.4
--- NOTE | 2024-12-14 11:00 | ED ---
General Adult HPI - General Chief complaint: Recheck/Abnormal Lab/Rx Stated complaint: Coughing up blood Time Seen by Provider: 12/14/24 10:41 Source: patient, RN notes reviewed Mode of arrival: ambulatory Limitations: no limitations - History of Present Illness Initial comments: Patient is a 49-year-old male presents emergency department with concern for hemoptysis. Patient was in the emergency department around 36 hours ago diagnosed with DVT. Patient has had some right sided chest discomfort which has been persistent or slightly improved. Patient has occasional cough. With coughing this morning patient did have some blood-tinged sputum. Patient was started on Eliquis. Patient did have his prescription filled and has been taking this as well. No dyspnea. - Related Data Previous Rx's Medication Instructions Recorded Albuterol Inhaler [Ventolin Hfa 1 - 2 puff INHALATION RT-Q6H PRN 12/13/21 Inhaler] 30 Days #1 dispenser Apixaban [Eliquis Starter Pack 5 - 10 mg PO DIRECTED 30 Days 12/13/21 (for VTE)] #1 each Apixaban [Eliquis] 5 mg PO BID 30 Days #60 tab 12/13/21 Ipratropium-Albuterol Nebulize 3 ml INHALATION QID 30 Days #390 ml 12/13/21 [Duoneb 0.5 mg-3 mg/3 ml Soln] predniSONE 0 mg PO DIRECTED 16 Days #40 tab 12/13/21 cefuroxime axetiL [Ceftin] 500 mg PO BID 7 Days #14 tab 12/14/21 Apixaban [Eliquis Starter Pack 5 - 10 mg PO DIRECTED 30 Days 12/13/24 (for VTE)] #1 each Azithromycin [Zithromax Z Pack] 1 tab PO DIRECTED #6 tab 12/13/24 Allergies Allergy/AdvReac Type Severity Reaction Status Date / Time sulfamethoxazole Allergy Swelling Verified 12/14/24 10:36 [From Bactrim] trimethoprim [From Bactrim] Allergy Swelling Verified 12/14/24 10:36 Review of Systems ROS Statement: Those systems with pertinent positive or pertinent negative responses have been documented in the HPI. ROS Other: All systems not noted in ROS Statement are negative. Constitutional: Denies: fever Eyes: Denies: eye pain Respiratory: Reports: as per HPI, hemoptysis Cardiovascular: Reports: as per HPI Endocrine: Denies: fatigue Gastrointestinal: Denies: abdominal pain Musculoskeletal: Denies: back pain Neurological: Denies: weakness Past Medical History Past Medical History: Pulmonary Embolus (PE) Additional Past Medical History / Comment(s): pneumonia, DVTs, History of Any Multi-Drug Resistant Organisms: None Reported Past Surgical History: Hernia Repair Past Psychological History: No Psychological Hx Reported Smoking Status: Current every day smoker Past Alcohol Use History: None Reported Past Drug Use History: Marijuana, Methamphetamine - Past Family History Father Family Medical History: No Reported History Mother Family Medical History: CVA/TIA General Exam Limitations: no limitations General appearance: alert, in no apparent distress Head exam: Present: normocephalic Neck exam: Present: normal inspection Respiratory exam: Present: normal lung sounds bilaterally. Absent: chest wall tenderness Cardiovascular Exam: Present: regular rate, normal rhythm GI/Abdominal exam: Present: soft. Absent: tenderness Extremities exam: Present: normal inspection, calf tenderness (Mild left-sided) Back exam: Present: normal inspection Neurological exam: Present: alert Psychiatric exam: Present: normal affect, normal mood Skin exam: Present: normal color Course Vital Signs 12/14/24 12/14/24 10:32 12:47 Temperature 98.4 F Pulse Rate 99 74 Respiratory 18 16 Rate Blood Pressure 123/83 132/83 O2 Sat by Pulse 98 96 Oximetry EKG Findings - EKG Results: EKG: interpreted by ERMD, sinus rhythm, normal axis, normal QRS, normal ST/T Medical Decision Making - Medical Decision Making Was pt. sent in by a medical professional or institution (, PA, HARDENING MACHINE OPERATOR HELPER, urgent care, hospital, or long term...) When possible be specific @ -No Did you speak to anyone other than the patient for history (EMS, parent, family, police, friend...)? What history was obtained from this source @ -No Did you review nursing and triage notes (agree or disagree)? Why? @ -I reviewed and agree with nursing and triage notes Were old charts reviewed (outside hosp., previous admission, EMS record, old EKG, old radiological studies, urgent care reports/EKG's, long term records)? Report findings @ -Previous ER chart and ultrasound reviewed as well as CT report Differential Diagnosis (chest pain, altered mental status, abdominal pain women, abdominal pain men, vaginal bleeding, weakness, fever, dyspnea, syncope, headache, dizziness, GI bleed, back pain, seizure, CVA, palpatations, mental health, musculoskeletal)? @ -Differential Dyspnea: Coronary syndrome, arrhythmia, tamponade, asthma, COPD, pulmonary embolism, pneumonia, pneumothorax, pulmonary effusion, anaphylaxis, diabetic ketoacidosis, flailed chest, pulmonary contusion, diaphragmatic rupture, anemia, neuromuscular, this is not meant to be an all-inclusive list. EKG interpreted by me (3pts min.). @ -As above X-rays interpreted by me (1pt min.). @ -None done CT interpreted by me (1pt min.). @ -CT scan does show right middle lobe segmental pulmonary embolism U/S interpreted by me (1pt. min.). @ -None done What testing was considered but not performed or refused? (CT, X-rays, U/S, labs)? Why? @ -None What meds were considered but not given or refused? Why? @ -None Did you discuss the management of the patient with other professionals (professionals i.e. , PA, HARDENING MACHINE OPERATOR HELPER, lab, RT, psych nurse, social insurance analyst, pulmonary physician, teacher, president and chief executive officer, cyanide case hardener)? Give summary @ -Radiologist regarding CT. Also discussed with pulmonary, Dr. Newman who agrees patient is safe for discharge and return for increased hemoptysis Was smoking cessation discussed for >3mins.? @ -No Was critical care preformed (if so, how long)? @ -No Were there social determinants of health that impacted care today? How? (Homelessness, low income, unemployed, alcoholism, drug addiction, transport ation, low edu. Level, literacy, decrease access to med. care, [facility], rehab)? @ -No Was there de-escalation of care discussed even if they declined (Discuss DNR or withdrawal of care, Hospice)? DNR status @ -No What co-morbidities impacted this encounter? (DM, HTN, Smoking, COPD, CAD, Cancer, CVA, ARF, Chemo, Hep., AIDS, mental health diagnosis, sleep apnea, morbid obesity)? @ -Recent DVT Was patient admitted / discharged? Hospital course, mention meds given and route, prescriptions, significant lab abnormalities, going to OR and other pertinent info. @ -Patient presents with pleuritic chest pain, hemoptysis and recent DVT. Patient does have segmental pulmonary embolism however is already on Eliquis. Patient does not have new symptoms otherwise. Patient will be discharged with continued treatment, return if symptoms worsen. Patient updated. Patient was reevaluated Undiagnosed new problem with uncertain prognosis? @ -No Drug Therapy requiring intensive monitoring for toxicity (Heparin, Nitro, Insulin, Cardizem)? @ -No Were any procedures done? @ -No Diagnosis/symptom? @ -Pulmonary embolism Acute, or Chronic, or Acute on Chronic? @ -Acute Uncomplicated (without systemic symptoms) or Complicated (systemic symptoms)? @ -Default Side effects of treatment? @ -No Exacerbation, Progression, or Severe Exacerbation? @ -No Poses a threat to life or bodily function? How? (Chest pain, USA, [place], pneumonia, PE, COPD, DKA, ARF, appy, cholecystitis, CVA, Diverticulitis, Homicidal, Suicidal, threat to staff... and all critical care pts) @ -No - Lab Data Result diagrams: 12/14/24 11:29 12/14/24 11:29 Lab Results 12/14/24 12/14/24 12/14/24 Range/Units 11:29 11:29 11:29 WBC 6.94 (4.50-10.00) 10*3/uL RBC 5.09 (4.40-5.60) 10*6/uL Hgb 16.2 (13.0-17.0) g/dL Hct 45.9 (39.6-50.0) % MCV 90.2 (80.0-97.0) fL MCH 31.8 (27.0-32.0) pg MCHC 35.3 (32.0-37.0) g/dL Plt Count 162 (140-440) 10*3/uL MPV 9.7 (9.5-12.2) fL Immature Gran % (Auto) 0.4 % Neutrophils % 62.5 % Lymphocytes % 26.4 % Monocytes % 5.9 % Eosinophils % 3.9 % Basophils % 0.9 % Immature Gran # 0.03 (0.00-0.04) 10*3/uL Neutrophils # 4.34 (1.80-7.70) 10*3/uL Lymphocytes # 1.83 (0.90-5.00) 10*3/uL Monocytes # 0.41 (0.20-1.00) 10*3/uL Eosinophils # 0.27 (0.04-0.35) 10*3/uL Basophils # 0.06 (0.00-0.10) 10*3/uL PT 10.8 (10.0-12.5) sec INR 1.0 (<1.2) APTT 26.9 (22.0-30.0) sec Sodium 136 L (137-145) mmol/L Potassium 4.7 (3.5-5.1) mmol/L Chloride 102 (98-107) mmol/L Carbon Dioxide 25 (22-30) mmol/L Anion Gap 9 mmol/L BUN 10 (9-20) mg/dL Creatinine 0.82 (0.66-1.25) mg/dL Est GFR (CKD-EPI)AfAm >90 (>60 ml/min/1.73 sqM) Est GFR (CKD-EPI)NonAf >90 (>60 ml/min/1.73 sqM) Glucose 90 (74-99) mg/dL Plasma Lactic Acid Brant (0.7-2.0) mmol/L Calcium 9.4 (8.4-10.2) mg/dL Total Bilirubin 1.0 (0.2-1.3) mg/dL AST 28 (17-59) U/L ALT 30 (4-49) U/L Alkaline Phosphatase 76 (38-126) U/L Total Protein 7.5 (6.3-8.2) g/dL Albumin 4.5 (3.5-5.0) g/dL 12/14/24 Range/Units 11:29 WBC (4.50-10.00) 10*3/uL RBC (4.40-5.60) 10*6/uL Hgb (13.0-17.0) g/dL Hct (39.6-50.0) % MCV (80.0-97.0) fL MCH (27.0-32.0) pg MCHC (32.0-37.0) g/dL Plt Count (140-440) 10*3/uL MPV (9.5-12.2) fL Immature Gran % (Auto) % Neutrophils % % Lymphocytes % % Monocytes % % Eosinophils % % Basophils % % Immature Gran # (0.00-0.04) 10*3/uL Neutrophils # (1.80-7.70) 10*3/uL Lymphocytes # (0.90-5.00) 10*3/uL Monocytes # (0.20-1.00) 10*3/uL Eosinophils # (0.04-0.35) 10*3/uL Basophils # (0.00-0.10) 10*3/uL PT (10.0-12.5) sec INR (<1.2) APTT (22.0-30.0) sec Sodium (137-145) mmol/L Potassium (3.5-5.1) mmol/L Chloride (98-107) mmol/L Carbon Dioxide (22-30) mmol/L Anion Gap mmol/L BUN (9-20) mg/dL Creatinine (0.66-1.25) mg/dL Est GFR (CKD-EPI)AfAm (>60 ml/min/1.73 sqM) Est GFR (CKD-EPI)NonAf (>60 ml/min/1.73 sqM) Glucose (74-99) mg/dL Plasma Lactic Acid Brant 1.1 (0.7-2.0) mmol/L Calcium (8.4-10.2) mg/dL Total Bilirubin (0.2-1.3) mg/dL AST (17-59) U/L ALT (4-49) U/L Alkaline Phosphatase (38-126) U/L Total Protein (6.3-8.2) g/dL Albumin (3.5-5.0) g/dL Disposition Clinical Impression: Pulmonary embolism Disposition: HOME SELF-CARE Condition: Stable Instructions (If sedation given, give patient instructions): Pulmonary Embolism (ED) Additional Instructions: Continue Eliquis. Return for shortness of breath, increased coughing up blood, feeling faint, increased heart rate, worsening symptoms or any other concerns. Please do follow-up with your primary care physician in the next couple of days for recheck. Is patient prescribed a controlled substance at d/c from ED?: No Referrals: None,Stated [Primary Care Provider] - 1-2 days Forms: Area PCPs Time of Disposition: 13:22
[2024-12-14] MEDS: SODIUM CHLORIDE 0.9% 1,000 ML IV SCH (11:40)
[2024-12-14 11:41] LABS: Basophils # (A) 0.06 10*3/uL (0.00-0.10); Basophils % (A) 0.9 %; Eosinophils # (A) 0.27 10*3/uL (0.04-0.35); Eosinophils % (A) 3.9 %; HCT 45.9 % (39.6-50.0); HGB 16.2 g/dL (13.0-17.0); Lymphocytes # (A) 1.83 10*3/uL (0.90-5.00); Lymphocytes % (A) 26.4 %; MCH 31.8 pg (27.0-32.0); MCHC 35.3 g/dL (32.0-37.0); MCV 90.2 fL (80.0-97.0); Monocytes # (A) 0.41 10*3/uL (0.20-1.00); Monocytes % (A) 5.9 %; Neutrophils # (A) 4.34 10*3/uL (1.80-7.70); Neutrophils % (A) 62.5 %; Platelet Count 162 10*3/uL (140-440); RBC 5.09 10*6/uL (4.40-5.60); RDW 11.2 % (11.5-14.5); WBC 6.94 10*3/uL (4.50-10.00)
[2024-12-14 11:51] LABS: ALT 30 U/L (4-49); AST 28 U/L (17-59); African American GFR (CKD) >90 (>60 ml/min/1.73 sqM); Albumin 4.5 g/dL (3.5-5.0); Alkaline Phosphatase 76 U/L (38-126); Anion Gap 9 mmol/L; Blood Urea Nitrogen 10 mg/dL (9-20); Calcium 9.4 mg/dL (8.4-10.2); Carbon Dioxide 25 mmol/L (22-30); Chloride 102 mmol/L (98-107); Glucose 90 mg/dL (74-99); Non-African American GFR(CKD) >90 (>60 ml/min/1.73 sqM); Potassium 4.7 mmol/L (3.5-5.1); Sodium 136 mmol/L (137-145); Total Protein 7.5 g/dL (6.3-8.2)
[2024-12-14 12:49] LABS: INR 1.0 (<1.2); Partial Thromboplastin Time 26.9 sec (22.0-30.0); Prothrombin Time 10.8 sec (10.0-12.5)
--- NOTE | 2024-12-14 12:57 | CT ---
EXAMINATION TYPE: CT angio chest DATE OF EXAM: 12/14/2024 COMPARISON: 12/13/2024 CLINICAL INDICATION: Male, 49 years old with history of Hemoptysis; PHH, Hemoptysis and positive DVT. TECHNIQUE: CTA scan of the thorax is performed with IV Contrast, patient injected with 100ml mL of Isovue 370, p ulmonary embolism protocol. MIP images are created and reviewed. CT DLP: 386.7 mGycm Automated exposure control for dose reduction was used. FINDINGS: LUNGS: A bilateral lower lobe groundglass subsegmental consolidation. Right middle lobe subsegmental groundglass consolidation. Airway patent. No sizable pulmonary mass. No evidence of pulmonary edema. MEDIASTINUM: The heart is enlarged. Aorta of normal caliber. Mild to moderate atherosclerotic changes . Borderline hilar adenopathy likely reactive but nonspecific.. Trace amount of pericardial fluid. He art size normal. Suboptimal enhancement of the pulmonary arteries. No large saddle\central pulmonary embolism. Finding s demonstrate reduced enhancement within the right middle lobe branch suspicious for acute pulmonary embolism. OTHER: Degenerative change of the spine. Findings suggestive of hepatic steatosis. Small hiatal dinora ia. Results of the exam were discussed with Dr. Carl 12:55 PM Eastern standard time 12/14/2024. IMPRESSION: 1. Suboptimal enhancement of the pulmonary arteries. Exam is limited. However, findings are suspiciou s for filling defect within the right middle lobe branch\acute pulmonary embolus reference coronal im age 58, series 402 and axial image 78-80, series 401. No definite RV strain. 2. Bilateral groundglass subsegmental consolidation correlate for atelectasis versus pneumonitis. 3. Correlate for underlying hepatocellular disease\hepatic steatosis. [facility], , 12/14/2024 12:55 PM
[2024-12-14 13:30] VITALS: BP 137/89; PULSE 72; RESP 18
== END 2024-12-14 13:35 | disposition home or self-care (01) ==
LOC: EC 10:27
CPT/HCPCS: 36415; 71275; 80053; 83605; 85025; 85610; 85730; 93005; 96360; 96361; 99284